=== PATIENT | female | born 1980 | race Caucasian/White ===

== ENCOUNTER → 2017-06-26 09:42 | Outpatient (CLI) | payer MEDICAID, SELFPAY ==
--- NOTE | 2017-06-26 09:47 | HPBI_ITS ---
MAMMOGRAPHY - BILATERAL SCREENING REASON FOR EXAM: Female, 36 years old. Routine annual screening examination. PERTINENT HISTORY: Grandmother with breast cancer. TECHNIQUE: Digital bilateral breast michelle (3D mammographic acquisition) in the CC and MLO projections. 2-D mediolateral oblique (MLO) and craniocaudad (CC) views of both breasts were obtained. CAD: Full Field Digital Mammography with Computer Added Detection was performed. COMPARISON: None. Baseline examination. FINDINGS: Breast Composition: The breasts are heterogeneously dense, which may obscure small masses. There are no dominant masses or suspicious calcifications. No other significant abnormalities are identified. HPBI/SCREENING MAMM (CAD), BILAT IMPRESSION: Negative screening mammogram. Yearly followup mammogram recommended. (A) ASSESSMENT CATEGORY: BIRADS Category 1: Negative. A letter regarding these results will be sent to the patient by the facility within 30 days. Approximately 10% of breast cancers are not detected by mammography. A normal mammogram should not delay biopsy of a clinically suspicious abnormality. [id number] Electronically Signed: Fortino Blood MD at 12:44 EST Tel [phone], Service support ,
== END ==
PROVIDERS: Family Provider Internal Medicine; PCP Internal Medicine; Visit Provider Obstetrics & Gynecology
DX: Z12.31 Encounter for screening mammogram for malignant neoplasm of breast (principal)
CPT/HCPCS: 77063; 77067

== ENCOUNTER → 2018-01-13 10:26 | Outpatient (CLI) | payer MEDICAID, SELFPAY ==
[2018-01-13 10:56] LABS: Absolute Lymphocyte Count 1.45 X10^3/ul (0.83-4.51); Absolute Neutrophil Count 4.3 X10^3/uL (2.0-7.7); Basophil# 0.02 X10^3/uL; Basophil% 0.3 % (0-1); Eosinophils% 1.5 % (0-5); Hematocrit 43.6 % (37-47); Hemoglobin 14.3 g/dl (12.0-15.0); Lymphocyte # 1.45 X10^3/ul (4.0); Lymphocyte % 21.9 % (19-41); Mean Corp Hgb Conc 32.8 g/gl (32-36); Mean Corpuscular Hgb 30.7 pg (27.0-32.0); Mean Corpuscular Volume 93.6 fL (81-99); Mean Platelet Vol. 9.3 fl (6.2-12.0); Monocyte# 0.77 X10^3/uL; Monocyte% 11.6 % (0-10); Neutrophil # 4.28 X10^3/uL (2.7-7.7); Neutrophil % 64.7 % (47-70); Platelet Count 225 K/mm3 (150-450); RBC Distribution Width SD 40.4 fl (35.1-43.9); Red Blood Count 4.66 M/mm3 (4.2-5.4); White Blood Count 6.6 K/mm3 (4.4-11.0)
[2018-01-13 11:03] LABS: POSITIVE COUNT NO; POSITIVE DIFFERENTIAL NO; POSITIVE MORPHOLOGY NO
[2018-01-13 11:42] LABS: AST(SGOT) 13 U/L (15-37); Alanine Aminotransfer ALT/SGPT 17 U/L (13-56); Albumin, Serum 3.8 g/dL (3.2-5.0); Alkaline Phosphatase 88 U/L (45-117); Anion Gap 8 (5-15); BUN 11 mg/dL (7-18); BUN/Creat Ratio 14.6 RATIO (10-20); Chloride 105 mmol/L (98-107); Creatinine, Serum 0.75 mg/dL (0.55-1.02); EST Glomerular Filtration Rate 92 mL/min (>60); Est Glom Filt Rate - Afr Amer 112 mL/min (>60); Globulin 3.8 g/dL (2.2-4.2); Glucose 86 mg/dL (74-106); Potassium 4.4 mmol/L (3.5-5.1); Protein, Total 7.6 g/dL (6.4-8.2); Sodium Level 141 mmol/L (136-145); Thyroid Stim Hormone (TSH) 1.91 uIU/mL (0.358-3.74)
[2018-01-13 11:51] LABS: Pregnancy, Serum, hCG Quali. NEGATIVE Negative (0-9 Nonpreg)
== END ==
PROVIDERS: Family Provider Internal Medicine; PCP Internal Medicine; Visit Provider Internal Medicine
DX: R53.81 Other malaise (principal); R53.83 Other fatigue; N91.2 Amenorrhea, unspecified
CPT/HCPCS: 36415; 80053; 84439; 84443; 84703; 85025

== ENCOUNTER → 2018-02-25 14:36 | Outpatient (CLI) | payer MEDICAID, SELFPAY ==
[2018-02-25 16:15] LABS: Erythrocyte Sedimentation Rate 1 mm/hr (0-20)
[2018-02-28 13:52] LABS: ANTINUCLEAR ANTIBODIES DIRECT Negative (Negative)
== END ==
PROVIDERS: Family Provider Internal Medicine; PCP Internal Medicine; Referring Provider Internal Medicine; Visit Provider Internal Medicine
DX: R50.9 Fever, unspecified (principal); R53.81 Other malaise; R53.83 Other fatigue
CPT/HCPCS: 36415; 85652; 86038; 86225; 86235

== ENCOUNTER → 2018-12-25 15:02 | Outpatient (CLI) | payer MEDICAID, SELFPAY ==
[2018-02-25 13:48] VITALS: BMI 20.7
[2018-12-30 09:47] LABS: HPV Reflexed? NOT INDICATED
== END ==
PROVIDERS: Visit Provider Obstetrics & Gynecology
DX: Z12.4 Encounter for screening for malignant neoplasm of cervix (principal)
CPT/HCPCS: 87624; 88175; G0145

== ENCOUNTER → 2020-01-21 08:58 | Outpatient (CLI) | payer MEDICAID, SELFPAY ==
[2020-01-21 12:20] LABS: Absolute Lymphocyte Count 1.06 X10^3/uL (0.83-4.51); Absolute Neutrophil Count 4.5 X10^3/uL (2.0-7.7); Basophil# 0.03 X10^3/uL; Basophil% 0.5 % (0-1); Eosinophil# 0.06 X10^3/uL; Hematocrit 42.6 % (37-47); Hemoglobin 13.9 g/dL (12.0-15.0); Lymphocyte # 1.06 X10^3/ul (4.0); Lymphocyte % 17.2 % (19-41); Mean Corp Hgb Conc 32.6 g/dL (32-36); Mean Corpuscular Hgb 30.5 pg (27.0-32.0); Mean Corpuscular Volume 93.4 fL (81-99); Mean Platelet Vol. 9.6 fl (6.2-12.0); Monocyte# 0.53 X10^3/uL; Monocyte% 8.6 % (0-10); NRBC Flagged by Analyzer 0 % (0-5); Neutrophil # 4.48 X10^3/uL (2.7-7.7); Neutrophil % 72.4 % (47-70); Platelet Count 314 K/mm3 (150-450); RBC Distribution Width CV 11.5 % (11.6-14.6); RBC Distribution Width SD 39.2 fl (35.1-43.9); Red Blood Count 4.56 M/mm3 (4.2-5.4); White Blood Count 6.2 K/mm3 (4.4-11.0)
[2020-01-21 12:22] LABS: Vitamin D,25 Hydroxy 36.4 ng/mL
[2020-01-21 12:37] LABS: ALB/GLOB Ratio 1.1 RATIO (0.9-2.4); AST(SGOT) 15 U/L (15-37); Alanine Aminotransfer ALT/SGPT 20 U/L (13-56); Alkaline Phosphatase 79 U/L (45-117); Anion Gap 6 (5-15); BUN 13 mg/dL (7-18); BUN/Creat Ratio 11.8 RATIO (10-20); Calcium,Total 8.8 mg/dL (8.5-10.1); Chloride 105 mmol/L (98-107); EST Glomerular Filtration Rate 59 mL/min (>60); Est Glom Filt Rate - Afr Amer 71 mL/min (>60); Globulin 3.6 g/dL (2.2-4.2); Glucose 75 mg/dL (74-106); Potassium 4.1 mmol/L (3.5-5.1); Protein, Total 7.6 g/dL (6.4-8.2); Sodium Level 140 mmol/L (136-145); T4 Free Direct 1.13 ng/dL (0.76-1.46); Thyroid Stim Hormone (TSH) 1.45 uIU/mL (0.358-3.74)
== END ==
PROVIDERS: PCP Internal Medicine; Visit Provider Nurse Practitioner Family
DX: L65.9 Nonscarring hair loss, unspecified (principal); F41.9 Anxiety disorder, unspecified; E56.9 Vitamin deficiency, unspecified
CPT/HCPCS: 36415; 80053; 82306; 84439; 84443; 85025

== ENCOUNTER → 2020-04-03 18:14 | Outpatient (CLI) | payer MEDICAID, SELFPAY | PROVIDERS: PCP Internal Medicine; Referring Provider Dermatology; Visit Provider Dermatology | DX: U07.1 COVID-19 (principal) | CPT/HCPCS: 87635; C9803; U0003 ==

== ENCOUNTER → 2021-01-24 | Outpatient (CLI) | payer MEDICAID, SELFPAY ==
[2021-01-26 22:05] LABS: HPV Reflexed? NOT INDICATED
== END | disposition home or self-care (01) ==
LOC: LABSPEC 11:10
PROVIDERS: PCP Internal Medicine; Visit Provider Obstetrics & Gynecology
DX: Z12.4 Encounter for screening for malignant neoplasm of cervix (principal)
CPT/HCPCS: 88175; G0145

== ENCOUNTER 2021-05-08 11:52 | Outpatient (CLI) | payer MEDICAID, SELFPAY | END 2021-05-08 23:59 | disposition short-term general hospital (02) | LOC: LABSPEC 11:53 | PROVIDERS: PCP Internal Medicine; Referring Provider Nurse Practitioner Family; Visit Provider Nurse Practitioner Family | DX: U07.1 COVID-19 (principal); J06.9 Acute upper respiratory infection, unspecified | CPT/HCPCS: 87635; 87804; U0003; U0005 ==

== ENCOUNTER 2021-08-22 15:30 | Outpatient (CLI) | payer MEDICAID, SELFPAY ==
[2021-08-22 16:41] LABS: Absolute Lymphocyte Count 2.06 X10^3/uL (0.83-4.51); Basophil# 0.04 X10^3/uL; Basophil% 0.5 % (0-1); Eosinophil# 0.12 X10^3/uL; Eosinophils% 1.5 % (0-5); Hematocrit 40.3 % (37-47); Hemoglobin 13.2 g/dL (12.0-15.0); Lymphocyte # 2.06 X10^3/ul (0.83-4.51); Lymphocyte % 26.5 % (19-41); Mean Corp Hgb Conc 32.8 g/dL (32-36); Mean Corpuscular Hgb 30.8 pg (27.0-32.0); Mean Corpuscular Volume 93.9 fL (81-99); Mean Platelet Vol. 9.1 fl (6.2-12.0); Monocyte# 0.52 X10^3/uL; Monocyte% 6.7 % (0-10); NRBC Flagged by Analyzer 0 % (0-5); Neutrophil # 5.01 X10^3/uL (2.7-7.7); Neutrophil % 64.7 % (47-70); Platelet Count 324 K/mm3 (150-450); RBC Distribution Width CV 11.7 % (11.6-14.6); RBC Distribution Width SD 40.2 fl (35.1-43.9); Red Blood Count 4.29 M/mm3 (4.2-5.4); White Blood Count 7.8 K/mm3 (4.4-11.0)
[2021-08-22 17:18] LABS: ALB/GLOB Ratio 1.1 RATIO (0.9-2.4); AST(SGOT) 15 U/L (15-37); Alanine Aminotransfer ALT/SGPT 19 U/L (13-56); Albumin, Serum 3.7 g/dL (3.2-5.0); Alkaline Phosphatase 71 U/L (45-117); Anion Gap 5 (5-15); BUN 19 mg/dL (7-18); BUN/Creat Ratio 23.7 RATIO (10-20); Calcium,Total 8.7 mg/dL (8.5-10.1); Chloride 105 mmol/L (98-107); Cholesterol 138 mg/dL (200); EST Glomerular Filtration Rate 84 mL/min (>60); Est Glom Filt Rate - Afr Amer 102 mL/min (>60); Globulin 3.4 g/dL (2.2-4.2); Glucose 96 mg/dL (74-106); High Density Lipoprotein 55 mg/dL; Potassium 3.6 mmol/L (3.5-5.1); Protein, Total 7.1 g/dL (6.4-8.2); Sodium Level 137 mmol/L (136-145); Triglycerides 137 mg/dL; Very Low Density Lipoprotein 27 mg/dL (5-40)
== END 2021-08-22 23:59 | disposition home or self-care (01) ==
LOC: BIMLAB 15:30
PROVIDERS: PCP Internal Medicine; Visit Provider Nurse Practitioner Family
DX: Z00.00 Encounter for general adult medical examination without abnormal findings (principal)
CPT/HCPCS: 36415; 80053; 80061; 84443; 85025

== ENCOUNTER → 2022-10-02 | Outpatient (CLI) | payer MEDICAID, SELFPAY ==
[2022-10-02 12:52] LABS: Absolute Lymphocyte Count 1.73 X10^3/uL (0.83-4.51); Absolute Neutrophil Count 3.9 X10^3/uL (2.0-7.7); Basophil# 0.04 X10^3/uL; Basophil% 0.6 % (0-1); Eosinophil# 0.07 X10^3/uL; Eosinophils% 1.1 % (0-5); Hematocrit 42.8 % (37-47); Hemoglobin 13.8 g/dL (12.0-15.0); Lymphocyte # 1.73 X10^3/ul (0.83-4.51); Lymphocyte % 27.4 % (19-41); Mean Corp Hgb Conc 32.2 g/dL (32-36); Mean Corpuscular Hgb 30.4 pg (27.0-32.0); Mean Corpuscular Volume 94.3 fL (81-99); Mean Platelet Vol. 9.2 fl (6.2-12.0); Monocyte# 0.58 X10^3/uL; Monocyte% 9.2 % (0-10); NRBC Flagged by Analyzer 0 % (0-5); Neutrophil # 3.87 X10^3/uL (2.7-7.7); Neutrophil % 61.4 % (47-70); Platelet Count 358 K/mm3 (150-450); RBC Distribution Width CV 11.9 % (11.6-14.6); RBC Distribution Width SD 41.6 fl (35.1-43.9); Red Blood Count 4.54 M/mm3 (4.2-5.4); White Blood Count 6.3 K/mm3 (4.4-11.0)
[2022-10-02 13:27] LABS: Vitamin B12 350 pg/mL (211-911); Vitamin D,25 Hydroxy 46.8 ng/mL
[2022-10-02 13:57] LABS: ALB/GLOB Ratio 1.2 RATIO (0.9-2.4); AST(SGOT) 22 U/L (15-37); Alanine Aminotransfer ALT/SGPT 23 U/L (13-56); Albumin, Serum 3.8 g/dL (3.2-5.0); Alkaline Phosphatase 63 U/L (45-117); Anion Gap 6 (5-15); BUN 13 mg/dL (7-18); BUN/Creat Ratio 14.7 RATIO (10-20); Calcium,Total 8.9 mg/dL (8.5-10.1); Chloride 106 mmol/L (98-107); Cholesterol 144 mg/dL (200); Creatinine, Serum 0.88 mg/dL (0.55-1.02); EST Glomerular Filtration Rate 75 mL/min (>60); Est Glom Filt Rate - Afr Amer 91 mL/min (>60); Globulin 3.3 g/dL (2.2-4.2); Glucose 93 mg/dL (74-106); High Density Lipoprotein 56 mg/dL; Potassium 4.3 mmol/L (3.5-5.1); Protein, Total 7.1 g/dL (6.4-8.2); Sodium Level 138 mmol/L (136-145); Thyroid Stim Hormone (TSH) 1.53 uIU/mL (0.358-3.74); Triglycerides 79 mg/dL; Very Low Density Lipoprotein 16 mg/dL (5-40)
== END | disposition home or self-care (01) ==
LOC: BIMLAB 09:42
PROVIDERS: Nurse Practitioner Family; PCP Internal Medicine; Visit Provider Internal Medicine
DX: Z00.00 Encounter for general adult medical examination without abnormal findings (principal); E56.9 Vitamin deficiency, unspecified
CPT/HCPCS: 36415; 80053; 80061; 82306; 82607; 84443; 85025

== ENCOUNTER → 2022-10-11 | Outpatient (CLI) | payer MEDICAID, SELFPAY ==
--- NOTE | 2022-10-11 10:02 | BI_ITS ---
MAMMOGRAPHY - BILATERAL SCREENING REASON FOR EXAM: Female, 41 years old. Routine annual screening examination. PERTINENT HISTORY: Grandmother with breast cancer. TECHNIQUE: Digital bilateral breast aaliyah (3D mammographic acquisition) in the CC and MLO projections. 2-D mediolateral oblique (MLO) and craniocaudad (CC) views of both breasts were obtained. CAD: Full Field Digital Mammography with Computer Added Detection was performed. COMPARISON: Comparison is made with prior study June 26, 2017. FINDINGS: Breast Composition: The breasts are heterogeneously dense, which may obscure small masses. There are no dominant masses or suspicious calcifications. No other significant abnormalities are identified. There has been no significant change since the prior study. BI/SCRN MAMM (CAD)W/AALIYAH BILAT IMPRESSION: Stable bilateral screening mammogram. Yearly follow-up mammogram recommended. (A) ASSESSMENT CATEGORY: BIRADS Category 1: Negative. A letter regarding these results will be sent to the patient by the facility within 30 days. Approximately 10% of breast cancers are not detected by mammography. A normal mammogram should not delay biopsy of a clinically suspicious abnormality. [id number] Electronically Signed: Fortino Blood MD at 11:16 EDT ,
== END | disposition home or self-care (01) ==
LOC: OPBI 10:01
PROVIDERS: PCP Nurse Practitioner Family; Referring Provider Nurse Practitioner Family; Visit Provider Nurse Practitioner Family
DX: Z12.31 Encounter for screening mammogram for malignant neoplasm of breast (principal)
CPT/HCPCS: 77063; 77067

== ENCOUNTER → 2023-09-04 | Outpatient (CLI) | payer OTHER, SELFPAY ==
--- NOTE | 2023-09-04 09:45 | RAD_ITS ---
STUDY: X-RAY - THORACIC SPINE REASON FOR EXAM: Female, 42 years old. Back pain. TECHNIQUE: 3 view(s) of the thoracic spine were obtained. COMPARISON: None. FINDINGS: Normal kyphosis of the thoracic spine. No scoliosis. Mild diffuse intervertebral disc space narrowing. Osteophytes most marked at T8-9, T9-T10, T10-11 and T11-12. Normal soft tissues. RAD/Thoracic Spine 3 Views IMPRESSION: Mild lower thoracic spondylosis. Electronically Signed: Lester Thurman MD at 14:20 EDT ,
--- NOTE | 2023-09-04 09:45 | RAD_ITS ---
STUDY: X-RAY - LUMBAR SPINE REASON FOR EXAM: Female, 42 years old. Back pain. TECHNIQUE: 2 view(s) of the lumbar spine were obtained. COMPARISON: None FINDINGS: Normal lumbar lordosis. No scoliosis. Normal alignment of the vertebral bodies. Normal vertebral bodies and endplates. Normal disc space heights. Postsurgical changes with wires projected beside both lower lumbosacral and upper pelvic regions. RAD/Lumbar Spine 2 or 3 Views IMPRESSION: No abnormality of the lumbar spine. Electronically Signed: Lester Thurman MD at 11:46 EDT ,
== END | disposition home or self-care (01) ==
LOC: MTRAD 09:42
PROVIDERS: PCP Nurse Practitioner Family; Referring Provider Nurse Practitioner Family; Visit Provider Nurse Practitioner Family
DX: M54.50 Low back pain, unspecified (principal)
CPT/HCPCS: 72072; 72100

== ENCOUNTER → 2024-10-08 | Outpatient (CLI) | payer OTHER, SELFPAY ==
--- OUTSIDE RECORDS SUMMARY | 2024-10-08 09:40 | XMS RPT_ITS | CCD ---
Author Organization [facility] Care Team Providers Care Chief Of Surgery Name Role Phone JOLYNN BARNETT Attending Unavailable JOLYNN BARNETT Primary Care Unavailable JOLYNN BARNETT Admitting Unavailable Dr. Nba Campos Primary Care Provider [phone] Dr. Nba Campos Referring Provider [phone] Rohini [employer]ER, WO[employer]ING [employer] LABORER-C Miguel Attending Provider Dr. Nba Campos Primary Care Provider [phone] Dr. Nba Campos Referring Provider [phone] Rohini [employer]ER, WO[employer]ING [employer]ORER-C Miguel Attending Provider Nba Campos Attending Unavailable Nba Campos Primary Care Unavailable Rohini [employer]ING [employer]ORER, Miguel Attending Unavailable Nova [employer]ING [employer] LABORER, Miguel Referring Unavailable Nova WO[employer]ING [employer]ANT LABORER, Miguel Primary Care Unavailable Nova VSC, Miguel Attending Unavailable Nova VSC, Miguel Referring Unavailable Nova VSC, Miguel Primary Care Unavailable Rohini [employer]ORER, Miguel Attending Unavailable Nba Campos Referring Unavailable Nba Campos Primary Care Unavailable Unavailable Primary Care Provider Unavailosmel Nova NEWS TECHNICAL DIRECTORMiguel Primary Care Provider [phone] ADE GOOD Attending Unavailable GUILLERMINA HEARN Referring Unavailable GUILLERMINA HEARN Attending Unavailable ELIZABETH BIRD Referring Unavailable ADE GOOD Referring Unavailable MIGUEL NOVA Primary Care Unavailable Medications Current Medications Medication Drug Class(es) Dates Sig (Normalized) Sig (Original) escitalopram 20 mg oral tablet (20 sources) Serotonin Reuptake Inhibitor Start: 09-16-2023 take 1 tablet by mouth once escitalopram oxalate (LEXAPRO) 20 mg tablet Take 1 tablet by mouth every afternoon. 09/16/2023 Active Start: 03-03-2020 End: 09-17-2022 take 1 tablet by mouth once daily Escitalopram Oxalate (Lexapro) 20 mg tablet Discontinued 20 MG PO DAILY March 12, 2021 9:50am August 22, 2021 3:21pm Start: 01-24-2020 End: 03-03-2020 take 1 tablet by mouth once daily Escitalopram Oxalate (Lexapro) 5 mg tablet Discontinued 5 MG PO DAILY January 24, 2020 12:00am March 03, 2020 8:51am levonorgestrel 0.377557 mg/hr intrauterine system (5 sources) Progestin, Progestin-containing Intrauterine Device Start: 01-13-2018 Levonorgestrel (Mirena) 20 mcg/24 hr (5 years) intrauterine device Active 1 INSERT INTRA-UTER ONCE January 13, 2018 12:00am spironolactone 100 mg oral tablet (3 sources) Aldosterone Antagonist Start: 09-07-2023 take 1 tablet by mouth once spironolactone (ALDACTONE) 100 mg tablet Take 1 tablet by mouth every afternoon. 09/07/2023 Active vitamin b12 1 mg/ml injectable solution (5 sources) Vitamin B12 Start: 10-02-2022 End: 03-07-2023 inject 1000 ug by intramuscular injection every month Cyanocobalamin (Vitamin B-12) Active 1000 MCG IM EVERY MONTH March 07, 2023 9:18am Completed/Discontinued Medications Medication Drug Class(es) Dates Sig (Normalized) Sig (Original) azithromycin 250 mg oral tablet (5 sources) Macrolide Antimicrobial Start: 02-11-2019 End: 01-21-2020 Azithromycin Discontinued 0 PO .COMPLEX February 11, 2019 12:00am January 21, 2020 8:28am Take two tablets by mouth on day one then one tablet by mouth on days 2-5 cholecalciferol 0.025 mg oral capsule (5 sources) Vitamin D Start: 08-16-2020 End: 08-22-2021 take 25 ug by mouth once daily Cholecalciferol (Vitamin D3) Discontinued 25 MCG PO DAILY August 16, 2020 12:00am August 22, 2021 2:51pm dextromethorphan hydrobromide 3 mg/ml / promethazine hydrochloride 1.25 mg/ml oral solution (3 sources) Phenothiazine, Uncompetitive A-aaaevd-A-asparta te Receptor Antagonist, Sigma-1 Agonist Start: 07-07-2015 End: 12-10-2023 take 5 mL by mouth every six hours as needed Promethazine-DM (PHENERGAN-DM) 6.25-15 mg/5 mL syrup Take 5 mL by mouth four times daily as needed. 120 mL 0 07/07/2015 12/10/2023 Discontinued (Course of therapy completed) ferrous gluconate 324 mg oral tablet (5 sources) Start: 09-29-2014 End: 01-13-2018 take 325 mg by mouth once daily Ferrous Gluconate Discontinued 325 MG PO DAILY@0800 September 29, 2014 12:00am January 13, 2018 9:39am Flucelvax Quad (PF) (flu vac qs 2017(4 yr up)CD(PF)) 60 mcg (15 mcg x (1 source) Start: 02-25-2018 End: 02-25-2018 inject 15 ug by intramuscular injection once Flucelvax Quad (PF) (flu vac qs 2017(4 yr up)CD(PF)) 60 mcg (15 mcg x Discontinued 60 MCG IM ONCE 1 February 25, 2018 1:35pm February 25, 2018 3:06pm lidocaine hydrochloride 20 mg/ml mucous membrane topical solution (5 sources) Antiarrhythmic, Amide Local Anesthetic Start: 02-11-2019 End: 01-21-2020 Lidocaine Hcl (Lidocaine Viscous) 2 % solution Discontinued 5 ML MUCOUS MEM THREE TIMES A DAY February 11, 2019 12:00am January 21, 2020 8:28am Multivitamin preparation (5 sources) Start: 08-16-2020 End: 08-22-2021 take 1 tablet by mouth once daily Multivitamin Discontinued 1 TABLET PO DAILY August 16, 2020 2:32pm August 22, 2021 2:51pm Start: 08-16-2020 End: 08-22-2021 take 1 tablet by mouth once daily Multivitamin Discontinued 1 TABLET PO DAILY August 16, 2020 12:00am August 22, 2021 2:51pm Start: 08-16-2020 End: 08-22-2021 take 1 tablet by mouth once daily Multivitamin Discontinued 1 TABLET PO DAILY August 15, 2020 11:00pm August 22, 2021 1:51pm NORGESTIMATE-ETHINYL ESTRADI OL (TRI-SPRINTEC, 28, ORAL) (3 sources) End: 12-10-2023 NORGESTIMATE-ETHINYL ESTRADI OL (TRI-SPRINTEC, 28, ORAL) Take by mouth once daily. 12/10/2023 Discontinued (Course of therapy completed) End: 12-10-2023 NORGESTIMATE-ETHINYL ESTRADI OL (TRI-SPRINTEC, 28, ORAL) Take by mouth once daily. 0 12/10/2023 Discontinued (Course of therapy completed) NORGESTIMATE-ETH INYL ESTRADIOL (TRI-SPRINTEC, 28, ORAL) Take by mouth once daily. 0 Active Vit,Vihp57-Tlkk-Kpubc (5 sources) Start: 07-30-2014 End: 01-13-2018 take 1 tablet by mouth once daily Vit,Iunx25-Qhwd-Egssa Discontinued 1 TABLET PO DAILY July 30, 2014 10:24pm January 13, 2018 9:39am Start: 07-30-2014 End: 01-13-2018 take 1 tablet by mouth once daily Vit,Yxez01-Qhsc-Yahop Discontinued 1 TABLET PO DAILY July 30, 2014 12:00am January 13, 2018 9:39am Start: 07-30-2014 End: 01-13-2018 take 1 tablet by mouth once daily Vit,Tnur12-Hkoe-Cktna Discontinued 1 TABLET PO DAILY July 29, 2014 11:00pm January 13, 2018 8:39am QUEtiapine 25 mg oral tablet (5 sources) Atypical Antipsychotic Start: 01-21-2020 End: 01-24-2020 take 1 tablet by mouth at bedtime Quetiapine (Seroquel) 25 mg tablet Discontinued 25 MG PO AT BEDTIME January 21, 2020 12:00am January 24, 2020 9:42pm rizatriptan 10 mg oral tablet (3 sources) Serotonin-1b and Serotonin-1d Receptor Agonist Start: 03-28-2015 End: 12-10-2023 rizatriptan (MAXALT) 10 mg tablet Take one at onset of headache. May repeat in 2 hours as needed. Max 30 mg/24 hours. 12 tablet 1 03/28/2015 12/10/2023 Discontinued (Course of therapy completed) Zinc (5 sources) Start: 08-16-2020 End: 08-22-2021 take 50 mg by mouth once daily Zinc Discontinued 50 MG PO DAILY August 16, 2020 2:33pm August 22, 2021 2:51pm Start: 08-16-2020 End: 08-22-2021 take 50 mg by mouth once daily Zinc Discontinued 50 MG PO DAILY August 16, 2020 12:00am August 22, 2021 2:51pm Start: 08-16-2020 End: 08-22-2021 take 50 mg by mouth once daily Zinc Discontinued 50 MG PO DAILY August 15, 2020 11:00pm August 22, 2021 1:51pm Problems Active Problems Problem Classification Problem Date Documented Da te Episodic/Chronic Anxiety disorders (10 sources) Anxiety; Translations: [Anxiety disorder, unspecified] 03-03-2020 Chronic Headache; including migraine (5 sources) Migraine; Translations: [Migraine, unspecified, not intractable, without status migrainosus] 01-13-2018 Chronic Malaise and fatigue (5 sources) Malaise and fatigue; Translations: [Other malaise] 01-13-2018 Episodic Other nervous system disorders (1 source) Other chronic pain; Translations: [Chronic right-sided low back pain without sciatica] Onset: 12-29-2023 Chronic Other non-traumatic joint disorders (1 source) Pain in right hip joint; Translations: [Pain in right hip] 10-14-2023 Episodic Residual codes; unclassified (5 sources) Insomnia; Translations: [Insomnia, unspecified] 03-03-2020 Episodic Spondylosis; intervertebral disc disorders; other back problems (3 sources) Arthropathy of lumbar facet joint; Translations: [Spondylosis without myelopathy or radiculopathy, lumbar region] Onset: 12-29-2023 12-10-2023 Chronic Spondylosis; intervertebral disc disorders; other back problems (5 sources) Low back pain; Translations: [Lumbar back pain] 10-14-2023 Episodic Unclassified (3 sources) Invalid ICD10 Description; Translations: [Invalid ICD10 Description] Onset: 05-25-2020 Unclassified (1 source) Low back pain, unspecified; Translations: [Low back pain, unspecified] Onset: 09-13-2023 Unclassified (2 sources) Lumbar back pain; Translations: [Lumbar back pain] Onset: 12-10-2023 Unclassified (1 source) Chronic right-sided low back pain without sciatica; Translations: [Chronic right-sided low back pain without sciatica] Onset: 12-29-2023 Past or Other Problems Problem Classification Problem Date Documented Da te Episodic/Chronic Nutritional deficiencies (6 sources) Vitamin deficiency; Translations: [Vitamin deficiency, unspecified] Onset: 10-02-2022 10-02-2022 Episodic Other screening for suspected conditions (not mental disorders or infectious disease) (1 source) Encounter for screening mammogram for malignant neoplasm of breast; Translations: [Encounter for screening mammogram for malignant neoplasm of breast] Onset: 10-17-2022 Episodic Unclassified (4 sources) history vein embolization 11-28-2021 Results Test Name Value Interpretation Reference Range Facility CNOV 12-10-2023 CNOV Office Visit (SPNMSO) KELECHI SMITH ([id number]) 1980 F Date Time Provider Department 12/10/23 8:40 AM ADE [facility] During your visit today, we recorded the following information about you: Temperature Pulse Blood pressure Weight 97.1 degrees 67/minute 112/68 67.1 kg Ade Good MD 12/10/2023 2:21 PM Signed Spine Care Path Low Back Pain - Chronic (> 12 weeks) Initial Exam SUBJECTIVE HISTORY OF PRESENT ILLNESS: Kelechi Smith is a 43 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 Guillermina Hearn for an opinion regarding right lumbar pain, not hip issue. My final recommendations will be communicated back to the requesting physician by way of shared medical record or letter via US mail. Her PT thought she may have a torn labrum, thus she saw Dr Hearn--clinically not hip issue, referred to spine Other Issues Addressed at the Visit Today: right back/hip pain is limiting her weight training Precipitating Event: none--started in Jan, started after trip to [place] PAIN EVALUATION 12/09/2023 1944 12/10/2023 0840 Pain Level: 4 -- 3-08/12 Pain Location: Back-Lower -- low back to R hip Description: Sore;Stiffness;Tight ness Tightness;Stiffness Duration Amount of Time: 11 11 Duration Units: Months Months Frequency: Continuous Continuous Intervention/Comfort measure: Medication;Repositio n;Heat;Massage;Laureano w support;Positioning Medication;Exercise Comments: -- dry needling, cupping Pain Radiation: Pain does not radiate, tight ball Aggravating Factors: sit/stand transfers, dry needling, in/out of bed Alleviating Factors: None Pain Ratio: N/A Prior Therapy: [facility] in [place] Dry needling and cupping Medications including prednisone (no change) Heat and ice OTC medications lidocaine Litigation: No Workers' Compensation: No YELLOW AND BLUE FLAGS No-Neg Attitude; Back Pain is Disabling YES-Avoiding Activity (for Fear of Pain) No-Depression or Anxiety Disorders No-Social Problems No-Substance Use Disorder No-Job Dissatisfaction No-Financial Disincentives Not working out Patient Entered Questionnaires 12/09/2023 Spine Questions Pain Location: Lower back Pain Duration: 6 months - 1 year Pain over last 6 months: Every day or nearly every day in the past 6 months Symptoms from neck/cervical spine: Yes Employment Status: Working now Involved in law suit/legal claim: No 12/09/2023 Spine Red Flags Any type of cancer: No Unexplained fever: No Bowel or bladder dysfunction: No Unintentional weight loss: No Osteoporosis: No 12/09/2023 Neck Questionnaires Benzel Modified CLAUDE Score 18 (No Myelopathy Symptoms) PROMIS Score Percentiles 10/13/2023 12/09/2023 Physical Health Physical Function Percentile 34 21* Sleep Percentile 38 Fatigue Percentile 46 Pain Interference Percentile 42 12/09/2023 PROMIS SOCIAL ROLE SCORE Social Role Satisfaction Percentile 58 10/13/2023 PROMIS Global Health Scale Physical Health Percentile 31 Mental Health Percentile 53 Percentiles provide an indication of how the patient's score ranks in relation to the general population. Higher percentile rankings indicate better function/quality of life. 50th percentile is the average of the general population and indicates half of respondents had a worse score. Depression Screenin12/09/2023 PHQ-9 Score 3 12/09/2023 PHQ-9 Self-harm Question Question 9 Not at all PHQ-9 Self-Harm (Item 9) response options: 0 Not at all 1 Several days 2 More than half the days 3 Nearly every day PHQ-9 Levels: 0-4 No - mild depression 5-9 Mild depression 10-14 Moderate depression 15-19 Moderately severe depression 20-27 Severe depression There is no problem list on file for this patient. PAST MEDICAL HISTORY No date: Anxiety state PAST SURGICAL HISTORY 04/2007: EMBOLIZATION COILS Social History Tobacco Use Smoking status: Never Smokeless tobacco: Never FAMILY HISTORY Problem Relation Age of Onset Hypothyroidism Mother Back Pain Father Back Pain Sister Back Pain Brother ALLERGIES No Known Allergies CURRENT MEDICATIONS: escitalopram oxalate (LEXAPRO) 20 mg tablet Take 1 tablet by mouth every afternoon. spironolactone (ALDACTONE) 100 mg tablet Take 1 tablet by mouth every afternoon. REVIEW OF SYSTEMS: Other than listed in HPI or PMHX below the patient denies any complaint of the following: myalgias, diagnosis of cancer, significant spinal trauma, cough, fever, weight loss, dizziness, fainting, orthostasis, vision or language changes. No shortness of breath, chest pain, nausea, vomiting or diarrhea. Reviewed and verified medical referral coordinator/nurse's progress notes. No revisions. OBJECTIVE: PHYSICAL EXAM BP 112/68 (BP Site: Right Arm, BP Position: S (more content not included)... Normal [facility] CNOVon 10-14-2023 CNOV Office Visit (SPHTB) KELECHI SMITH ([id number]) 1980 F Date Time Provider Department 10/14/23 9:45 AM GUILLERMINA HEARN SPHTB During your visit today, we recorded the following information about you: Guillermina Hearn MD 10/14/2023 10:13 AM Signed DEPARTMENT OF ORTHOPAEDICS Consultation as a request of self. Chief Complaint: Right hip pain HISTORY OF PRESENT ILLNESS: This is a pleasant 42 year old female, who presents today with a chief complaint of right hip pain/low back pain Injury/ Trauma: Denies PAIN EVALUATION 10/13/20232112 Pain Level: 3 Pain Location: Back Description: Aching;Burning;Radia ting;Sharp;Sore;Spas m;Stiffness;Tightnes s Duration Units: Months Frequency: Continuous Intervention/Comfort measure: Medication;Repositio n;Relaxation;Heat;Ma ssage Pain location: posterior Duration of pain/ symptoms: 9 months Frequency: intermittent Intensity: moderate Quality: dull and burning She Reports nocturnal pain. She denies numbness, tingling, or electric shocks. She denies popping, clicking, catching, locking, grinding, instability, buckling, or giving way. Aggravating factors: ADL's, pivoting, prolonged sitting, and prolonged standing Alleviating factors: Unknown Prior Treatments: massage/PT Work Related: No Occupation: Activity level: recreational, sport/activity: No past medical history on file. No past surgical history on file. Current Outpatient Medications Medication Sig Dispense Refill escitalopram oxalate (LEXAPRO) 20 mg tablet Take 1 tablet by mouth every afternoon. spironolactone (ALDACTONE) 100 mg tablet Take 1 tablet by mouth every afternoon. Promethazine-DM (PHENERGAN-DM) 6.25-15 mg/5 mL syrup Take 5 mL by mouth four times daily as needed. 120 mL 0 rizatriptan (MAXALT) 10 mg tablet Take one at onset of headache. May repeat in 2 hours as needed. Max 30 mg/24 hours. 12 tablet 1 NORGESTIMATE-ETHINYL ESTRADIOL (TRI-SPRINTEC, 28, ORAL) Take by mouth once daily. No current facility-administere d medications for this visit. ALLERGIES No Known Allergies No family history on file. Social History Tobacco Use Smoking status: Never Smokeless tobacco: Never REVIEW OF SYSTEMS: GENERAL: No weight loss, malaise or fevers HEENT: Negative for frequent or significant headaches, No changes in hearing or vision, no nose bleeds or other nasal problems NECK: Negative for lumps, goiter, pain and significant neck swelling RESPIRATORY: Negative for cough, hemoptysis, wheezing, COPD, dyspnea or shortness of breath CARDIOVASCULAR: Negative for chest pain, leg swelling, hypertension, CHF or palpitations GI: No nausea, vomiting, or diarrhea : No history of dysuria, frequency or incontinence MUSCULOSKELETAL: Negative for joint pain or swelling, back pain or muscle pain SKIN: Negative for lesions, rash, and itching HEMATOLOGY/LYMPHOLOG Y: Negative for prolonged bleeding, bruising easily or swollen nodes ENDOCRINE: Negative for cold or heat intolerance, polyuria, polydipsia and goiter RADIOGRAPHS: right AP pelvis, Nina lateral and false view dated today revealed no acute processes, fractures, or dislocations. Osseous and soft tissue structures within normal limits. Tonnis grade 0. X-Rays Reviewed and discussed. OTHER STUDIES: Not applicable PHYSICAL EXAM: There were no vitals taken for this visit. General: Appears stated age, well built, in no apparent distress. Psychiatric: Mood and affect appropriate. Alert and oriented x 3 without evidence of abnormal respiratory effort. Musculoskeletal Exam: Gait normal, Posture: erect and normal. Exam: Right Left Single Leg Trendelenburg Negative Negative Hip flexion 110 110 IR 10 20 ER 60 60 Anterior impingement negative negative Dynamic labral stress negative negative BAY negative negative Posterior Impingement negative negative EDWARDO negative negative Strength Right Left Supine HF 5/5 5/5 Upright HF 5/5 5/5 Adduction 5/5 5/5 Abduction 5/5 5/5 Tenderness with Palpation: Right Left Greater Troch Positive Positive Gluteus Medius Negative Negative Piriformis Negative Negative She has pain with side bending to the left, full extension/flexion PROCEDURE: IMPRESSION: 1. right lumbar back pain, no pain on hip exam. PLAN: 1. Medication: Continue current medications. 2. Test(s)/Imaging/Refe rral(s): spine referral. 3. Intervention: Continue conservative treatment. 4. Follow-up: Two months . Guillermina Hearn MD Sports Medicine/Orthopaedic Surgery Allergies As of Date: 10/14/2023 (No Known Allergies) Date Reviewed: 10/14/2023 Reviewed by: Kanu Valenzuela MA - Fully Assessed Reason for Visit: Pain [78] Primary Visit Diagnosis:Lumbar back pain [M54.50] Order(s):CONSULT TO [facility] [[id number]] Order #: [id number]: 1 FUTURE Prescriptions as of 10/14/2023 (more content not included)... Normal [facility] XR HIP 3V PELV+ AP/LAT RTon 10-14-2023 XR HIP 3V PELV+ AP/LAT RT * * *Final Report* * * DATE OF EXAM: Oct 14 2023 9:46AM SHX [id number] - XR HIP 3V PELV+ AP/LAT RT / PROCEDURE REASON: Pain in right hip * * * * Physician Interpretation * * * * EXAMINATION: XR HIP 3V PELV+ AP/LAT RT HISTORY: Pt sts pain in her Right hip No specific injury. Pt sts coils put in years ago. Pain in right hip . TECHNIQUE: XR HIP 3V PELV+ AP/LAT RT Laterality: RIGHT Number of different views (projections): 3 M: XB_1 COMPARISON: Outside hospital lumbar spine radiograph 09/04/2023. RESULT: No acute fracture or dislocation. Right hip joint space is maintained. Small calcification adjacent to the right greater trochanter may represent calcific gluteal tendinosis. Bilateral sacroiliac, pubic symphysis and imaged left hip joints are maintained. Bilateral ovarian vein embolization coils. IUD in place. IMPRESSION: No acute radiographic abnormality or significant degenerative change of the right hip. Small calcification adjacent to the right greater trochanter may represent calcific gluteal tendinosis. Assembler Production Line: KAYLEY Transcribe Date/Time: Oct 14 2023 9:47A Dictated by : DAVID CONTE MD This examination was interpreted and the report reviewed and electronically signed by: CHRIS WOLFE MD on Oct 14 2023 1:06PM EST [id number] Normal [facility] XR Pelvis and Hip - right AP and Lateral frogon 10-14-2023 IMPRESSION: No acute radiographic abnormality or significant degenerative change of the right hip. Small calcification adjacent to the right greater trochanter may represent calcific gluteal tendinosis. Assembler Production Line: PSCB Transcribe Date/Time: Oct 14 2023 9:47A Dictated by : DAVID CONTE MD This examination was interpreted and the report reviewed and electronically signed by: CHRIS WOLFE MD on Oct 14 2023 1:06PM EST DIVISION OF RADIOLOGY * * *Final Report* * * DATE OF EXAM: Oct 14 2023 9:46AM SHX [id number] - XR HIP 3V PELV+ AP/LAT RT / PROCEDURE REASON: Pain in right hip * * * * Physician Interpretation * * * * EXAMINATION: XR HIP 3V PELV+ AP/LAT RT HISTORY: Pt sts pain in her Right hip No specific injury. Pt sts coils put in years ago. Pain in right hip . TECHNIQUE: XR HIP 3V PELV+ AP/LAT RT Laterality: RIGHT Number of different views (projections): 3 M: XB_1 COMPARISON: Outside hospital lumbar spine radiograph 09/04/2023. RESULT: No acute fracture or dislocation. Right hip joint space is maintained. Small calcification adjacent to the right greater trochanter may represent calcific gluteal tendinosis. Bilateral sacroiliac, pubic symphysis and imaged left hip joints are maintained. Bilateral ovarian vein embolization coils. IUD in place. DIVISION OF RADIOLOGY Provider, [facility] [place] - 10/14/2023 * * *Final Report* * * DATE OF EXAM: Oct 14 2023 9:46AM SHX [id number] - XR HIP 3V PELV+ AP/LAT RT / PROCEDURE REASON: Pain in right hip * * * * Physician Interpretation * * * * EXAMINATION: XR HIP 3V PELV+ AP/LAT RT HISTORY: Pt sts pain in her Right hip No specific injury. Pt sts coils put in years ago. Pain in right hip . TECHNIQUE: XR HIP 3V PELV+ AP/LAT RT Laterality: RIGHT Number of different views (projections): 3 M: XB_1 COMPARISON: Outside hospital lumbar spine radiograph 09/04/2023. RESULT: No acute fracture or dislocation. Right hip joint space is maintained. Small calcification adjacent to the right greater trochanter may represent calcific gluteal tendinosis. Bilateral sacroiliac, pubic symphysis and imaged left hip joints are maintained. Bilateral ovarian vein embolization coils. IUD in place. IMPRESSION IMPRESSION: No acute radiographic abnormality or significant degenerative change of the right hip. Small calcification adjacent to the right greater trochanter may represent calcific gluteal tendinosis. Assembler Production Line: KAYLEY Transcribe Date/Time: Oct 14 2023 9:47A Dictated by : DAVID CONTE MD This examination was interpreted and the report reviewed and electronically signed by: CHRIS WOLFE MD on Oct 14 2023 1:06PM [facility] Radiology Study observation (narrative) [facility] XR Pelvis and Hip - right AP and Lateral frogOrdered By: [facility] Provider on 10-14-2023 [facility] Lumbar Spine 2 or 3 Viewson 09-04-2023 Lumbar Spine 2 or 3 Views [facility] [address] [place] [address] Lumbar Spine 2 or 3 Views MR#: [id number] Acct: [id number] Name: KELECHI SMITH Rep #: [id number] : 1980 F 42 From: Charity Thurman MD PCP: JASMINE Suarez Status: REG CLI Study: Lumbar Spine 2 or 3 Views Date of Exam: Exam# [id number] Ordering Dr: Miguel Nova [facility] WO[employer] PRESERVING [employer]ANT LABORER-C [id number] STUDY: X-RAY - LUMBAR SPINE REASON FOR EXAM: Female, 42 years old. Back pain. TECHNIQUE: 2 view(s) of the lumbar spine were obtained. COMPARISON: None FINDINGS: Normal lumbar lordosis. No scoliosis. Normal alignment of the vertebral bodies. Normal vertebral bodies and endplates. Normal disc space heights. Postsurgical changes with wires projected beside both lower lumbosacral and upper pelvic regions. RAD/Lumbar Spine 2 or 3 Views IMPRESSION: No abnormality of the lumbar spine. Electronically Signed: Charity Thurman MD at 11:46 EDT , CC: JASMINE [employer] Production Line: Signed Normal [facility] Thoracic Spine 3 Viewson Thoracic Spine 3 Views [facility] Services [address] [place] [address] Thoracic Spine 3 Views MR#: [id number] Acct: [id number] Name: KELECHI SMITH Rep #: [id number] : 1980 F 42 From: Charity Thurman MD PCP: JASMINE Suarez Status: REG CLI Study: Thoracic Spine 3 Views Date of Exam: 09/04/23 Exam# [id number] Ordering Dr: Miguel Nova [facility] [employer]ER-C [id number] STUDY: X-RAY - THORACIC SPINE REASON FOR EXAM: Female, 42 years old. Back pain. TECHNIQUE: 3 view(s) of the thoracic spine were obtained. COMPARISON: None. FINDINGS: Normal kyphosis of the thoracic spine. No scoliosis. Mild diffuse intervertebral disc space narrowing. Osteophytes most marked at T8-9, T9-T10, T10-11 and T11-12. Normal soft tissues. RAD/Thoracic Spine 3 Views IMPRESSION: Mild lower thoracic spondylosis. Electronically Signed: Charity Thurman MD at 14:20 EDT Reading Location ID and State: [address] [place] [address] , Service support , CC: JASMINE [employer] Production Line: Signed Normal [facility] Bacteria Ur Culton Bacteria identified Cx Nom (U) ORGANISM ID: 1 10,000 -<50,000 CFU/ml Normal urogenital mari Normal [facility] Comment on above: Performed By: #### 6 30-4 #### [facility] CLIA [id number] [address] [place] [address] [place] [address] [place] CBC W Auto Differential pane l (Bld)on 02-25-2023 Basophils (Bld) [#/Vol] 0.05 10*3/uL Normal <0.11 [facility] Comment on above: Order Comment: Speci men Type: BLOOD SPECIMEN Ordering Facility: [facility] Address: [address] [place] [address] Performed By: #### 5 7021-8 #### [facility] CLIA [id number] [address] [place] [address] [place] Basophils/100 WBC (Bld) 0.6 % Normal [facility] Comment on above: Order Comment: Speci men Type: BLOOD SPECIMEN Ordering Facility: [facility] Address: [address] [place] [address] Performed By: #### 5 7021-8 #### [facility] CLIA [id number] [address] [place] [address] [place] Differential cell count method Nom (Bld) Auto Normal [facility] Comment on above: Order Comment: Speci men Type: BLOOD SPECIMEN Ordering Facility: [facility] Address: [address] [place] [address] Performed By: #### 5 7021-8 #### [facility] CLIA [id number] [address] [place] [address] [place] Eosinophils (Bld) [#/Vol] 0.08 10*3/uL Normal <0.46 [facility] Comment on above: Order Comment: Speci men Type: BLOOD SPECIMEN Ordering Facility: [facility] Address: [address] [place] [address] Performed By: #### 5 7021-8 #### [facility] CLIA [id number] [address] [place] [address] [place] Eosinophils/100 WBC (Bld) 0.9 % Normal [facility] Comment on above: Order Comment: Speci men Type: BLOOD SPECIMEN Ordering Facility: [facility] Address: [address] [place] [address] Performed By: #### 5 7021-8 #### [facility] CLIA [id number] [address] [place] [address] [place] Erythrocyte distribution width (RBC) [Ratio] 11.9 % Normal 11.5-15.0 [facility] Comment on above: Order Comment: Speci men Type: BLOOD SPECIMEN Ordering Facility: [facility] Address: [address] [place] [address] Performed By: #### 5 7021-8 #### [facility] CLIA [id number] [address] [place] [address] [place] Hematocrit (Bld) [Volume fraction] 46.5 % High 36.0-46.0 [facility] Comment on above: Order Comment: Speci men Type: BLOOD SPECIMEN Ordering Facility: [facility] Address: [address] [place] [address] Performed By: #### 5 7021-8 #### [facility] CLIA [id number] [address] [place] [address] [place] Hemoglobin (Bld) [Mass/Vol] 14.9 g/dL Normal 11.5-15.5 [facility] Comment on above: Order Comment: Speci men Type: BLOOD SPECIMEN Ordering Facility: [facility] Address: [address] [place] [address] Performed By: #### 5 7021-8 #### [facility] CLIA [id number] [address] [place] [address] [place] Immature granulocytes (Bld) [#/Vol] 0.03 10*3/uL Normal <0.10 [facility] Comment on above: Order Comment: Speci men Type: BLOOD SPECIMEN Ordering Facility: [facility] Address: [address] [place] [address] Performed By: #### 5 7021-8 #### [facility] CLIA [id number] [address] [place] [address] [place] Immature granulocytes/100 WBC (Bld) 0.3 % Normal [facility] Comment on above: Order Comment: Speci men Type: BLOOD SPECIMEN Ordering Facility: [facility] Address: [address] [place] [address] Performed By: #### 5 7021-8 #### [facility] CLIA [id number] [address] [place] [address] [place] Lymphocytes (Bld) [#/Vol] 2.38 10*3/uL Normal 1.00-4.00 [facility] Comment on above: Order Comment: Speci men Type: BLOOD SPECIMEN Ordering Facility: [facility] Address: [address] [place] [address] Performed By: #### 5 7021-8 #### [facility] CLIA [id number] [address] [place] [address] [place] Lymphocytes/100 WBC (Bld) 27.5 % Normal [facility] Comment on above: Order Comment: Speci men Type: BLOOD SPECIMEN Ordering Facility: [facility] Address: [address] [place] [address] Performed By: #### 5 7021-8 #### [facility] CLIA [id number] [address] [place] [address] [place] MCH (RBC) [Entitic mass] 31.4 pg Normal 26.0-34.0 [facility] Comment on above: Order Comment: Speci men Type: BLOOD SPECIMEN Ordering Facility: [facility] Address: [address] [place] [address] Performed By: #### 5 7021-8 #### [facility] CLIA [id number] [address] [place] [address] [place] MCHC (RBC) [Mass/Vol] 32.0 g/dL Normal 30.5-36.0 [facility] Comment on above: Order Comment: Speci men Type: BLOOD SPECIMEN Ordering Facility: [facility] Address: [address] [place] [address] Performed By: #### 5 7021-8 #### [facility] CLIA [id number] [address] [place] [address] [place] MCV (RBC) [Entitic vol] 97.9 fL Normal 80.0-100.0 [facility] Comment on above: Order Comment: Speci men Type: BLOOD SPECIMEN Ordering Facility: [facility] Address: [address] [place] [address] Performed By: #### 5 7021-8 #### [facility] CLIA [id number] [address] [place] [address] [place] Monocytes (Bld) [#/Vol] 0.76 10*3/uL Normal <0.87 [facility] Comment on above: Order Comment: Speci men Type: BLOOD SPECIMEN Ordering Facility: [facility] Address: [address] [place] [address] Performed By: #### 5 7021-8 #### [facility] CLIA [id number] [address] [place] [address] [place] Monocytes/100 WBC (Bld) 8.8 % Normal [facility] Comment on above: Order Comment: Speci men Type: BLOOD SPECIMEN Ordering Facility: [facility] Address: [address] [place] [address] Performed By: #### 5 7021-8 #### [facility] CLIA [id number] [address] [place] [address] [place] Neutrophils (Bld) [#/Vol] 5.35 10*3/uL Normal 1.45-7.50 [facility] Comment on above: Order Comment: Speci men Type: BLOOD SPECIMEN Ordering Facility: [facility] Address: [address] [place] [address] Performed By: #### 5 7021-8 #### [facility] CLIA [id number] [address] [place] [address] [place] Neutrophils/100 WBC (Bld) 61.9 % Normal [facility] Comment on above: Order Comment: Speci men Type: BLOOD SPECIMEN Ordering Facility: [facility] Address: [address] [place] [address] Performed By: #### 5 7021-8 #### [facility] CLIA [id number] [address] [place] [address] [place] Nucleated RBC (Bld) [#/Vol] 10*3/uL Normal <0.01 [facility] Comment on above: Order Comment: Speci men Type: BLOOD SPECIMEN Ordering Facility: [facility] Address: [address] [place] [address] Performed By: #### 5 7021-8 #### [facility] CLIA [id number] [address] [place] [address] [place] Nucleated RBC/100 WBC (Bld) [Ratio] 0.0 /100 WBC Normal [facility] Comment on above: Order Comment: Speci men Type: BLOOD SPECIMEN Ordering Facility: [facility] Address: [address] [place] [address] Performed By: #### 5 7021-8 #### [facility] CLIA [id number] [address] [place] [address] [place] Platelet mean volume (Bld) [Entitic vol] 9.4 fL Normal 9.0-12.7 [facility] Comment on above: Order Comment: Speci men Type: BLOOD SPECIMEN Ordering Facility: [facility] Address: [address] [place] [address] Performed By: #### 5 7021-8 #### [facility] CLIA [id number] [address] [place] [address] [place] Platelets (Bld) [#/Vol] 422 10*3/uL High 150-400 [facility] Comment on above: Order Comment: Speci men Type: BLOOD SPECIMEN Ordering Facility: [facility] Address: [address] [place] [address] Performed By: #### 5 7021-8 #### [facility] CLIA [id number] [address] [place] [address] [place] RBC (Bld) [#/Vol] 4.75 10*6/uL Normal 3.90-5.20 [facility] Comment on above: Order Comment: Speci men Type: BLOOD SPECIMEN Ordering Facility: [facility] Address: [address] [place] [address] Performed By: #### 5 7021-8 #### [facility] CLIA [id number] [address] [place] [address] [place] WBC (Bld) [#/Vol] 8.65 10*3/uL Normal 3.70-11.00 [facility] Comment on above: Order Comment: Speci men Type: BLOOD SPECIMEN Ordering Facility: [facility] Address: [address] [place] [address] Performed By: #### 5 7021-8 #### [facility] CLIA [id number] [address] [place] [address] [place] Comprehensive metabolic 2000 panelon 02-25-2023 Albumin [Mass/Vol] 4.6 g/dL Normal 3.9-4.9 [facility] Comment on above: Order Comment: Speci men Type: BLOOD SPECIMEN Ordering Facility: [facility] Address: [address] [place] [address] Performed By: #### 2 4323-8, 3016-3 #### [facility] CLIA [id number] [address] [place] [id number] [place] ALP [Catalytic activity/Vol] 59 U/L Normal 34-123 [facility] Comment on above: Order Comment: Speci men Type: BLOOD SPECIMEN Ordering Facility: [facility] Address: [address] [facility], [place] [address] Performed By: #### 2 4323-8, 3016-3 #### [facility] CLIA [id number] [address] [place] [id number] [place] ALT [Catalytic activity/Vol] 16 U/L Normal 7-38 [facility] Comment on above: Order Comment: Speci men Type: BLOOD SPECIMEN Ordering Facility: [facility] Address: [address] [facility], [place] [address] Performed By: #### 2 4323-8, 3016-3 #### [facility] CLIA [id number] [address] [place] [address] [place] Anion gap [Moles/Vol] 10 mmol/L Normal 9-18 [facility] Comment on above: Order Comment: Speci men Type: BLOOD SPECIMEN Ordering Facility: [facility] Address: [address] [place] [address], [place] [address] Performed By: #### 2 4323-8, 3016-3 #### [facility] CLIA [id number] [address] [place] [address] [place] AST [Catalytic activity/Vol] 26 U/L Normal 13-35 [facility] Comment on above: Order Comment: Speci men Type: BLOOD SPECIMEN Ordering Facility: [facility] Address: [address] [facility], [place] [address] Performed By: #### 2 4323-8, 3016-3 #### [facility] CLIA [id number] [address] [place], [place] [id number] [place] Bilirubin [Mass/Vol] 0.7 mg/dL Normal 0.2-1.3 [facility] Comment on above: Order Comment: Speci men Type: BLOOD SPECIMEN Ordering Facility: [facility] Address: [address] [place] [address], [place] [address] Performed By: #### 2 4323-8, 3016-3 #### [facility] CLIA [id number] [address] [place] [id number] [place] Calcium [Mass/Vol] 10.1 mg/dL Normal 8.5-10.2 [facility] Comment on above: Order Comment: Speci men Type: BLOOD SPECIMEN Ordering Facility: [facility] Address: [address] [place] [address], [place] [address] Performed By: #### 2 4323-8, 6-3 #### [facility] CLIA [id number] [address] [place], [place] [address] [place] Chloride [Moles/Vol] 101 mmol/L Normal 97-105 [facility] Comment on above: Order Comment: Speci men Type: BLOOD SPECIMEN Ordering Facility: [facility] Address: [address] [place] [address], [place] [address] Performed By: #### 2 4323-8, 3015-3 #### [facility] CLIA [id number] [address] [place], [place] [id number] [place] CO2 [Moles/Vol] 23 mmol/L Normal 22-30 [facility] Comment on above: Order Comment: Speci men Type: BLOOD SPECIMEN Ordering Facility: [facility] Address: [address] [place] [address], [place] [address] Performed By: #### 2 4323-8, 6-3 #### [facility] CLIA [id number] [address] [address] [place] Creatinine [Mass/Vol] 0.89 mg/dL Normal 0.58-0.96 [facility] Comment on above: Order Comment: Speci men Type: BLOOD SPECIMEN Ordering Facility: [facility] Address: [address] [place] [address], [place] [address] Performed By: #### 2 4323-8, 6-3 #### [facility] CLIA [id number] [address] [place] [address] [place] Creatinine and Glomerular filtration rate.predicted panel (S/P/Bld) 84 mL/min/1.73m??? Normal >=60 [facility] Comment on above: Order Comment: Wilder woodard Type: BLOOD SPECIMEN Ordering Facility: [facility] Address: [address] [place] [address], [place] [address] Result Comment: Sandy mated Glomerular Filtration Rate (eGFR) is calculated using the 2020 CKD-EPI creatinine equation. This equation utilizes serum creatinine, sex, and age as parameters. The creatinine assay has traceable calibration to isotope dilution-mass spectrometry. Refer to KDIGO guidelines for clinical interpretation. In patients with unstable renal function, e.g. those with acute kidney injury, the eGFR may not accurately reflect actual GFR. Performed By: #### 2 4323-8, 3016-3 #### [facility] CLIA [id number] [address] [place] [address] [place] Glucose [Mass/Vol] 77 mg/dL Normal 74-99 [facility] Comment on above: Order Comment: Wilder woodard Type: BLOOD SPECIMEN Ordering Facility: [facility] Address: [address] [place] [address], [place] [address] Result Comment: The [place] [employer] (ADA) provides guidance for cutoff values for fasting glucose and random glucose. The ADA defines fasting as no caloric intake for at least 8 hours. Fasting plasma glucose results between 100 to 125 mg/dL indicate increased risk for diabetes (prediabetes). Fasting plasma glucose results greater than or equal to 126 mg/dL meet the criteria for diagnosis of diabetes. In the absence of unequivocal hyperglycemia, results should be confirmed by repeat testing. In a patient with classic symptoms of hyperglycemia or hyperglycemic crisis, random plasma glucose results greater than or equal to 200 mg/dL meet the criteria for diagnosis of diabetes. Reference: Standards of Medical Care in Diabetes 2016, [place] [employer]. Diabetes Care. 2016.39(Suppl 1). Performed By: #### 2 4323-8, 3016-3 #### [facility] CLIA [id number] [address] [place] [id number] [place] Potassium [Moles/Vol] 4.6 mmol/L Normal 3.7-5.1 [facility] Comment on above: Order Comment: Speci men Type: BLOOD SPECIMEN Ordering Facility: [facility] Address: [address] [place] [address], [place] [address] Performed By: #### 2 4323-8, 3016-3 #### [facility] CLIA [id number] [address] [place] [address] [place] Protein [Mass/Vol] 7.5 g/dL Normal 6.3-8.0 [facility] Comment on above: Order Comment: Speci men Type: BLOOD SPECIMEN Ordering Facility: [facility] Address: [address] [place] [address], [place] [address] Performed By: #### 2 4323-8, 3016-3 #### [facility] CLIA [id number] [address] [place] [address] [place] Sodium [Moles/Vol] 134 mmol/L Low 136-144 [facility] Comment on above: Order Comment: Speci men Type: BLOOD SPECIMEN Ordering Facility: [facility] Address: [address] [place] [address], [place] [address] Performed By: #### 2 4323-8, 3016-3 #### [facility] CLIA [id number] [address] [place], [place] [id number] [place] Urea nitrogen [Mass/Vol] 12 mg/dL Normal 7-21 [facility] Comment on above: Order Comment: Speci men Type: BLOOD SPECIMEN Ordering Facility: [facility] Address: [address] [place] [address], [place] [address] Performed By: #### 2 4323-8, 3016-3 #### [facility] CLIA [id number] [address] [place] [id number] [place] TSH SerPl-aCncon 02-25-2023 TSH Qn 1.790 m[IU]/L Normal 0.270-4.200 [facility] Comment on above: Order Comment: Speci men Type: BLOOD SPECIMEN Ordering Facility: [facility] Address: [address] [place] [address] Result Comment: If t he patient is , TSH reference range varies by gestational period: First Trimester (weeks 9-12): 0.180-2.990 mIU/L Second Trimester: 0.110-3.980 mIU/L Third Trimester: 0.480-4.710 mIU/L Abel Hanson et al. A Practical Approach for the Verifications and Determination of Site- and Trimester-Specific Reference Intervals for Thyroid Function tests in . Thyroid, 2019:29:3:412-420. Piero Melvin, et al. 2017 Guidelines of the [place] Thyroid Association for the Diagnosis and Management of Thyroid Disease during and the . Thyroid, 2017:27:3:315-389. Performed By: #### 2 4323-8, 3016-3 #### [facility] CLIA [id number] [address] [place] [address] [place] URINALYSIS, DIPSTICK ONLYon 02-25-2023 Bilirubin Ql (U) Negative Normal Negative [facility] Comment on above: Order Comment: Speci men Type: URINE SPECIMEN Ordering Facility: [facility] Address: [address] [place] [address] Performed By: #### U A #### [facility] CLIA [id number] [address] [place] [address] [place] Clarity (Unsp spec) Clear Normal Clear [facility] Comment on above: Order Comment: Speci men Type: URINE SPECIMEN Ordering Facility: [facility] Address: [address] [place] [address] Performed By: #### U A #### [facility] CLIA [id number] [address] [place] [address] [place] Color (U) Yellow Normal Yellow [facility] Comment on above: Order Comment: Speci men Type: URINE SPECIMEN Ordering Facility: [facility] Address: [address] [place] [address], [place] [address] Performed By: #### U A #### [facility] CLIA [id number] [address] [place] [id number] [place] Glucose Test strip (U) [Mass/Vol] Negative Normal Negative [facility] Comment on above: Order Comment: Speci men Type: URINE SPECIMEN Ordering Facility: [facility] Address: [address] [place] [address], [place] [address] Performed By: #### U A #### [facility] CLIA [id number] [address] [place] [address] [place] Hemoglobin Ql (U) Negative Normal Negative [facility] Comment on above: Order Comment: Speci men Type: URINE SPECIMEN Ordering Facility: [facility] Address: [address] [place] [address], [place] [address] Performed By: #### U A #### [facility] CLIA [id number] [address] [place] [address] [place] Ketones Ql (U) Trace Abnormal Negative [facility] Comment on above: Order Comment: Speci men Type: URINE SPECIMEN Ordering Facility: [facility] Address: [address] [place] [address], [place] [address] Performed By: #### U A #### [facility] CLIA [id number] [address] [place] [id number] [place] Leukocyte esterase Test strip Ql (U) Negative Normal Negative [facility] Comment on above: Order Comment: Speci men Type: URINE SPECIMEN Ordering Facility: [facility] Address: [address] [place] [address] Performed By: #### U A #### [facility] CLIA [id number] [address] [place] [id number] [place] Nitrite Ql (U) Negative Normal Negative [facility] Comment on above: Order Comment: Speci men Type: URINE SPECIMEN Ordering Facility: [facility] Address: [address] [place] [address] Performed By: #### U A #### [facility] CLIA [id number] [address] [place] [address] [place] pH (U) 5.5 [pH] Normal <8.5 [facility] Comment on above: Order Comment: Speci men Type: URINE SPECIMEN Ordering Facility: [facility] Address: [address] [place] [address] Performed By: #### U A #### [facility] CLIA [id number] [address] [place] [address] [place] OF SHARI Protein (U) [Mass/Vol] Negative Normal Negative [facility] Comment on above: Order Comment: Speci men Type: URINE SPECIMEN Ordering Facility: [facility] Address: [address] [place] [address] Performed By: #### U A #### [facility] CLIA [id number] [address] [place] [address] [place] Specific gravity (U) [Rel density] 1.022 Normal 1.005-1.030 [facility] Comment on above: Order Comment: Speci men Type: URINE SPECIMEN Ordering Facility: [facility] Address: [address] [place] [address] Performed By: #### U A #### [facility] CLIA [id number] [address] [place] [address] [place] Urobilinogen Ql (U) 0.2 EU/dL Normal 0.2-1.0 EU/dL [facility] Comment on above: Order Comment: Speci men Type: URINE SPECIMEN Ordering Facility: [facility] Address: [address] [place] [address] Performed By: #### U A #### [facility] CLIA [id number] [address] [place] [address] [address] [place] SCRN MAMM (CAD)W/AALIYAH BILATo n 10-11-2022 SCRN MAMM (CAD)W/AALIYAH BILAT [facility] Services [address] [place] [address] SCRN MAMM (CAD)W/AALIYAH BILAT MR#: [id number] Acct: [id number] Name: KELECHI SMITH Rep #: [id number] : 1980 F 41 From: Fortino robles MD PCP: Miguel Nova NP-C Status: [facility] Study: SCRN MAMM (CAD)W/AALIYAH BILAT Date of Exam: 01/25 Exam# [id number] Ordering Dr: Miguel Nova NP 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 Routine annual screening examination. PERTINENT HISTORY: Grandmother with breast cancer. TECHNIQUE: Digital bilateral breast aaliyah (3D mammographic acquisition) in the CC and MLO projections. 2-D mediolateral oblique (MLO) and craniocaudad (CC) views of both breasts were obtained. CAD: Full Field Digital Mammography with Computer Added Detection was performed. COMPARISON: Comparison is made with prior study June 26, 2017. FINDINGS: Breast Composition: The breasts are heterogeneously dense, which may obscure small masses. There are no dominant masses or suspicious calcifications. No other significant abnormalities are identified. There has been no significant change since the prior study. BI/SCRN MAMM (CAD)W/AALIYAH BILAT IMPRESSION: Stable bilateral screening mammogram. Yearly follow-up mammogram recommended. (A) ASSESSMENT CATEGORY: BIRADS Category 1: Negative. A letter regarding these results will be sent to the patient by the facility within 30 days. Approximately 10% of breast cancers are not detected by mammography. A normal mammogram should not delay biopsy of a clinically suspicious abnormality. [id number] Electronically Signed: Fortino Blood MD at 11:16 EDT , CC: JASMINE Nova Assembler Production Line: Signed Normal [facility] Absolute lymphocyte countOrd ered By: Miguel Nova on 10-02-2022 Lymphocytes Auto (Unsp spec) [#/Vol] 1.73 10*3/uL 0.83-4.51 [facility] Basophil percentageOrdered B y: Miguel Nova on 10-02-2022 Basophils/100 WBC (Bld) 0.6 % 0-1 [facility] Bilirubin [Mass/Vol] 0.50 mg/dL 0.20-1.00 [facility] Comment on above: For patients on eltr ombopag therapy, use of Dimension [place] TBIL is not recommended. Chloride [Moles/Vol] 106 mmol/L 98-107 [facility] Cholesterol [Mass/Vol] 144 mg/dL <200 [facility] Comment on above: <200 mg/dL Desirable 200-240 mg/dL Borderline >240 mg/dL High Risk Eosinophils/100 WBC (Bld) 1.1 % 0-5 [facility] Glucose [Mass/Vol] 93 mg/dL 74-106 [facility] Neutrophils (Bld) [#/Vol] 3.9 10*3/uL 2.0-7.7 [facility] Neutrophils/100 WBC (Bld) 61.4 % 47-70 [facility] Potassium [Moles/Vol] 4.3 mmol/L 3.5-5.1 [facility] Protein [Mass/Vol] 7.1 g/dL 6.4-8.2 [facility] Sodium [Moles/Vol] 138 mmol/L 136-145 [facility] Triglyceride [Mass/Vol] 79 mg/dL <199 [facility] Comment on above: The drugs N-Acetylcy steine and Metamizole may falsely depress this assay.Serum Triglycerides Reference Interval Normal <150 mg/dL Borderline high 150 - 199 mg/dL High 200 - 499 mg/dL Very High > or = 500 mg/dL WBC (Bld) [#/Vol] 6.3 10*3/uL 4.4-11.0 [facility] Blood erythrocytes count (nu mber/volume)Ordered By: Miguel Nova on 10-02-2022 RBC (Bld) [#/Vol] 4.54 10*6/uL 4.2-5.4 [facility] Blood hemoglobin measurement (mass/volume)Ordered By: Miguel Nova on 10-02-2022 Hemoglobin (Bld) [Mass/Vol] 13.8 g/dL 12.0-15.0 [facility] Blood lymphocytes/100 leukoc ytesOrdered By: Miguel Nova on 10-02-2022 Lymphocytes/100 WBC (Bld) 27.4 % 19-41 [facility] Blood monocytes/100 leukocyt esOrdered By: Miguel Nova on 10-02-2022 Monocytes/100 WBC (Bld) 9.2 % 0-10 [facility] Blood platelet mean volumeOr dered By: Miguel Nova on 10-02-2022 Platelet mean volume (Bld) [Entitic vol] 9.2 fL 6.2-12.0 [facility] CBC W/Diff, Automatedon 09-04 Absolute Lymph 1.73 X10 3/uL Normal 0.83-4.51 [facility] Comment on above: Performed By: #### L 501.9520, L500.4100, L100.0100, L500.4050, L506.1000, L503.0105 #### [facility] [address] [place], [place], [id number] Absolute Neut 3.9 X10 3/uL Normal 2.0-7.7 [facility] Comment on above: Performed By: #### L 501.9520, L500.4100, L100.0100, L500.4050, L506.1000, L503.0105 #### [facility] [address] [place], [address] Basophils/100 WBC (Bld) 0.6 % Normal 0-1 [facility] Comment on above: Performed By: #### L 501.9520, L500.4100, L100.0100, L500.4050, L506.1000, L503.0105 #### [facility] [address] [place], [address] Eosinophils/100 WBC (Bld) 1.1 % Normal 0-5 [facility] Comment on above: Performed By: #### L 501.9520, L500.4100, L100.0100, L500.4050, L506.1000, L503.0105 #### [facility] [address] [place], [address] Erythrocyte distribution width (RBC) [Ratio] 11.9 % Normal 11.6-14.6 [facility] Comment on above: Performed By: #### L 501.9520, L500.4100, L100.0100, L500.4050, L506.1000, L503.0105 #### [facility] [address] [place], [address] Hematocrit (Bld) [Volume fraction] 42.8 % Normal 37-47 [facility] Comment on above: Performed By: #### L 501.9520, L500.4100, L100.0100, L500.4050, L506.1000, L503.0105 #### [facility] [address] [place], [address] Hemoglobin (Bld) [Mass/Vol] 13.8 g/dL Normal 12.0-15.0 [facility] Comment on above: Performed By: #### L 501.9520, L500.4100, L100.0100, L500.4050, L506.1000, L503.0105 #### [facility] [address] [place], [address] IG% 0.300 Normal 0.0-0.9 [facility] Comment on above: Result Comment: IG% - Immature Granulocytes (promyelocytes, myelocytes and metamyelocytes) > 1% indicates that a LEFT SHIFT is Present. Performed By: #### L 501.9520, L500.4100, L100.0100, L500.4050, L506.1000, L503.0105 #### [facility] [address] [place], [address] Lymphocytes/100 WBC (Bld) 27.4 % Normal 19-41 [facility] Comment on above: Performed By: #### L 501.9520, L500.4100, L100.0100, L500.4050, L506.1000, L503.0105 #### [facility] [address] [facility] [place], [address] MCH (RBC) [Entitic mass] 30.4 pg Normal 27.0-32.0 [facility] Comment on above: Performed By: #### L 501.9520, L500.4100, L100.0100, L500.4050, L506.1000, L503.0105 #### [facility] [address] [place], [address] MCHC (RBC) [Mass/Vol] 32.2 g/dL Normal 32-36 [facility] Comment on above: Performed By: #### L 501.9520, L500.4100, L100.0100, L500.4050, L506.1000, L503.0105 #### [facility] [address] [place], [address] MCV (RBC) [Entitic vol] 94.3 fL Normal 81-99 [facility] Comment on above: Performed By: #### L 501.9520, L500.4100, L100.0100, L500.4050, L506.1000, L503.0105 #### [facility] [address] [place], [address] Monocytes/100 WBC (Bld) 9.2 % Normal 0-10 [facility] Comment on above: Performed By: #### L 501.9520, L500.4100, L100.0100, L500.4050, L506.1000, L503.0105 #### [facility] [address] [place], [address] Neutrophils/100 WBC (Bld) 61.4 % Normal 47-70 [facility] Comment on above: Performed By: #### L 501.9520, L500.4100, L100.0100, L500.4050, L506.1000, L503.0105 #### [facility] [address] [place], [address] Nucleated RBC (Bld) [#/Vol] 0 10*3/uL Normal 0-5 [facility] Comment on above: Performed By: #### L 501.9520, L500.4100, L100.0100, L500.4050, L506.1000, L503.0105 #### [facility] [address] [place], [address] Platelet mean volume (Bld) [Entitic vol] 9.2 fL Normal 6.2-12.0 [facility] Comment on above: Performed By: #### L 501.9520, L500.4100, L100.0100, L500.4050, L506.1000, L503.0105 #### [facility] [address] [place], [address] Platelets (Bld) [#/Vol] 358 10*3/uL Normal 150-450 [facility] Comment on above: Performed By: #### L 501.9520, L500.4100, L100.0100, L500.4050, L506.1000, L503.0105 #### [facility] [address] [place], [address] RBC (Bld) [#/Vol] 4.54 10*6/uL Normal 4.2-5.4 [facility] Comment on above: Performed By: #### L 501.9520, L500.4100, L100.0100, L500.4050, L506.1000, L503.0105 #### [facility] [address] [place], [address] RDW SD 41.6 fl Normal 35.1-43.9 [facility] Comment on above: Performed By: #### L 501.9520, L500.4100, L100.0100, L500.4050, L506.1000, L503.0105 #### [facility] [address] [place], [address] WBC (Bld) [#/Vol] 6.3 10*3/uL Normal 4.4-11.0 [facility] Comment on above: Performed By: #### L 501.9520, L500.4100, L100.0100, L500.4050, L506.1000, L503.0105 #### [facility] [address] [place], [address] Comprehensive Metabolic Prof [facility] 10-02-2022 Albumin [Mass/Vol] 3.8 g/dL Normal 3.2-5.0 [facility] Comment on above: Performed By: #### L 501.9520, L500.4100, L100.0100, L500.4050, L506.1000, L503.0105 #### [facility] [address] [place], [address] Albumin/Globulin [Mass ratio] 1.2 {ratio} Normal 0.9-2.4 [facility] Comment on above: Performed By: #### L 501.9520, L500.4100, L100.0100, L500.4050, L506.1000, L503.0105 #### [facility] [address] [place], [address] ALK P 63 U/L Normal 45-117 [facility] Comment on above: Performed By: #### L 501.9520, L500.4100, L100.0100, L500.4050, L506.1000, L503.0105 #### [facility] [address] [place], [address] ALT [Catalytic activity/Vol] 23 U/L Normal 13-56 [facility] Comment on above: Performed By: #### L 501.9520, L500.4100, L100.0100, L500.4050, L506.1000, L503.0105 #### [facility] [address] [place], [address] AST [Catalytic activity/Vol] 22 U/L Normal 15-37 [facility] Comment on above: Performed By: #### L 501.9520, L500.4100, L100.0100, L500.4050, L506.1000, L503.0105 #### [facility] [address] [place], [address] Bilirubin [Mass/Vol] 0.50 mg/dL Normal 0.20-1.00 [facility] Comment on above: Result Comment: For patients on eltrombopag therapy, use of Dimension [place] TBIL is not recommended. Performed By: #### L 501.9520, L500.4100, L100.0100, L500.4050, L506.1000, L503.0105 #### [facility] [address] [place], [address] BUN/CRE 14.7 RATIO Normal 10-20 [facility] Comment on above: Performed By: #### L 501.9520, L500.4100, L100.0100, L500.4050, L506.1000, L503.0105 #### [facility] [address] [place], [address] CA,Total 8.9 mg/dL Normal 8.5-10.1 [facility] Comment on above: Performed By: #### L 501.9520, L500.4100, L100.0100, L500.4050, L506.1000, L503.0105 #### [facility] [address] [place], [address] Chloride [Moles/Vol] 106 mmol/L Normal 98-107 [facility] Comment on above: Performed By: #### L 501.9520, L500.4100, L100.0100, L500.4050, L506.1000, L503.0105 #### [facility] [address] [place], [address] CO2 [Moles/Vol] 26.0 mmol/L Normal 21.0-32.0 [facility] Comment on above: Performed By: #### L 501.9520, L500.4100, L100.0100, L500.4050, L506.1000, L503.0105 #### [facility] [address] [place], [address] Creatinine [Mass/Vol] 0.88 mg/dL Normal 0.55-1.02 [facility] Comment on above: Result Comment: The validity of the calculated GFR GFRAA in patients over 70 years has not been determined. Clinical correlation is essential. Performed By: #### L 501.9520, L500.4100, L100.0100, L500.4050, L506.1000, L503.0105 #### [facility] [address] [place], [address] EST GFR - AA 91 mL/min Normal >60 [facility] Comment on above: Result Comment: Afri can Banglades[place] GFR Calc Performed By: #### L 501.9520, L500.4100, L100.0100, L500.4050, L506.1000, L503.0105 #### [facility] [address] [place], [address] GAP 6 Normal 5-15 [facility] Comment on above: Performed By: #### L 501.9520, L500.4100, L100.0100, L500.4050, L506.1000, L503.0105 #### [facility] [address] [place], [address] GFR/1.73 sq M.predicted among non-blacks MDRD (S/P/Bld) [Vol rate/Area] 75 mL/min/{1.73_m2} Normal >60 [facility] Comment on above: Result Comment: Non- GFR Calc Performed By: #### L 501.9520, L500.4100, L100.0100, L500.4050, L506.1000, L503.0105 #### [facility] [address] [place], [address] Globulin (S) [Mass/Vol] 3.3 g/dL Normal 2.2-4.2 [facility] Comment on above: Performed By: #### L 501.9520, L500.4100, L100.0100, L500.4050, L506.1000, L503.0105 #### [facility] [address] [place], [address] Glucose [Mass/Vol] 93 mg/dL Normal 74-106 [facility] Comment on above: Performed By: #### L 501.9520, L500.4100, L100.0100, L500.4050, L506.1000, L503.0105 #### [facility] [address] [place], [address] Potassium [Moles/Vol] 4.3 mmol/L Normal 3.5-5.1 [facility] Comment on above: Performed By: #### L 501.9520, L500.4100, L100.0100, L500.4050, L506.1000, L503.0105 #### [facility] [address] [place], [address] Sodium [Moles/Vol] 138 mmol/L Normal 136-145 [facility] Comment on above: Performed By: #### L 501.9520, L500.4100, L100.0100, L500.4050, L506.1000, L503.0105 #### [facility] [address] [place], [address] T PROT 7.1 g/dL Normal 6.4-8.2 [facility] Comment on above: Performed By: #### L 501.9520, L500.4100, L100.0100, L500.4050, L506.1000, L503.0105 #### [facility] [address] [place], [address] Urea nitrogen [Mass/Vol] 13 mg/dL Normal 7-18 [facility] Comment on above: Performed By: #### L 501.9520, L500.4100, L100.0100, L500.4050, L506.1000, L503.0105 #### [facility] [address] [place], [address] Determination of erythrocyte mean corpuscular volume (MCV)Ordered By: Miguel Nova on 10-02-2022 MCV (RBC) [Entitic vol] 94.3 fL 81-99 [facility] Hematocrit Auto (Bld) [Volum e fraction]Ordered By: Miguel Nova on 10-02-2022 Hematocrit (Bld) [Volume fraction] 42.8 % 37-47 [facility] Internal Medicine Office Vis marty 10-02-2022 Internal Medicine Office Visit [facility] [address] [place] [address] [address] [place] [address] OFFICE VISIT Date of Service: 10/02/22 MR#: [id number] Acct: [id number] Name: KELECHI SMITH Rep #: [id number] : 1980 Provider: JASMINE Nova Age/Sex: 41/F Location: [facility] [place] [place] Status: Signed Intake Vital Signs 08/22/21 14:54 10/02/22 09:15 Height 5 ft 7 in 5 ft 7 in Weight: 156 lb BMI 24.4 BP 104/62 Blood Pressure Location Lt brachial Position Sitting Respiration 14 Pulse 81 Pulse Source Monitor Temp 98.1 F Temp Source Temporal Pulse Oximetry (%) 99 Oxygen Delivery Method room air Intake Visit Reasons: Routine Chief Complaint: CHECK UP Is patient in pain?: No Allergies No Known Allergies Allergy (Verified 10/02/22 09:02) Medications levonorgestrel 21 mcg/24 hours (8 yrs) 52 mg intrauterine device (Mirena) 1 insert intrauterine ONCE 01/13/18 [History Confirmed 10/02/22] escitalopram oxalate 20 mg tablet (Lexapro) 20 mg PO DAILY #90 tabs 09/17/22 [Rx Confirmed 10/02/22] PFSH Medical History (Updated 10/02/22 @ 09:27 by Miguel Nova [employer]ER, [employer]ER-C) Anxiety Encounter for preventative adult health care examination Migraines Vitamin deficiency Surgical History history vein embolization Family History Grandmother Breast cancer Grandfather Cancer Skin cancer Mother Thyroid disorder Aunt Thyroid disorder Social History Smoking Status: Never smoker alcohol intake: current alcohol intake frequency: holidays/special occasions only Alcohol type: wine substance use type: does not use what type of physical activity do you participate in: weight training and other details: Cardio frequency: 5-6 times per week HPI HPI Chief Complaint: CHECK UP Details: KELECHI SMITH, is a 41 F who presents to the office today for follow-up of her chronic conditions. She has a past medical history as listed above. The patient states that overall she is doing well. 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 She states that her immunizations are up-to-date. She is due for annual lab work and would like her vitamin levels assessed as she has a history of vitamin deficiency. She states that her anxiety is well controlled on her current SSRI. Denies any thoughts of harming self or others. She is a non-smoker and only utilizes alcohol in moderation. She states that she tries to follow a healthy diet, exercise, and healthy lifestyle choices. Denies any acute concerns. Past medical, family, and social history reviewed and not pertinent to the current visit and all other systems reviewed and negative with exception of those listed above. ROS Const Constitutional: No body ache, chills, excessive sweating, fatigue, fever(s), frequent falls, headache(s), snoring, weakness, weight change, sleep problems or change in appetite Eyes Eyes: No blurry vision, change in vision, eye pain or Light sensitivity ENT ENT: No abnormal hearing, ear or mastoid pain, tinnitus, nasal congestion, headache(s), neck pain or sore throat Resp Respiratory: No cough, shortness of breath, snoring or wheezing Cardio Cardiology: No chest pain at rest, chest pain with exertion, excessive sweating, shortness of breath, dyspnea on exertion, lightheadedness, orthopnea or palpitations Gastro GI: No abdominal pain, change in bowel habits, constipation, cramping, diarrhea, nausea/dyspepsia or vomiting Genitourinary-Female : No burning urination, painful urination, urinary incontinence, urinary frequency or abnormal vaginal bleeding Musc Musculoskeletal: No abnormal gait, joint pain, back pain, limited range of motion, neck pain, numbness or tingling Skin Skin: No dry skin, redness, lesions, itchy eyes, rash or wounds Neuro Neurology: No abnormal gait, abnormal hearing, abnormal speech, dizziness, weakness, frequent falls, headache(s), memory loss, numbness or tingling Psych Psychiatric: No anxiety, No change in appetite, No depression, No memory loss and No Thoughts of harming yourself/Others Endo Endocrine: No cold intolerance, excessive sweating, fatigue, flushing, heat intolerance, increased thirst/drinking, increased hunger or weight change Aller/Imm Allergy/Immunologic: No itchy eyes, seasonal allergy symptoms, hives or wheezing [place]/Lymp Hematologic/Lymphati c: No easy bleeding, easy bruising or enlarged lymph nodes Exam Const General: cooperative, comfortable and no acute distress Nutritional Appearance: average body habitus and well nourished Orientation: alert and oriented x3 Limitations: mental status not altered [facility] Head: normal to in (more content not included)... Normal [facility] - Chemistry and C hemistry - challengeOrdered By: Miguel Nova on 10-02-2022 ALP [Catalytic activity/Vol] 63 U/L 45-117 [facility] ALT [Catalytic activity/Vol] 23 U/L 13-56 [facility] CO2 [Moles/Vol] 26.0 mmol/L 21.0-32.0 [facility] Cobalamin (Vitamin B12) [Mass/Vol] 350 pg/mL 211-911 [facility] Globulin (S) [Mass/Vol] 3.3 g/dL 2.2-4.2 [facility] Urea nitrogen/Creatinine [Mass ratio] 14.7 mg/mg 10-20 [facility] - Hematology and Cell countsOrdered By: Miguel Nova on 10-02-2022 Erythrocyte distribution width (RBC) [Entitic vol] 41.6 fL 35.1-43.9 [facility] Erythrocyte distribution width (RBC) [Ratio] 11.9 % 11.6-14.6 [facility] Immature granulocytes/100 WBC (Bld) 0.300 % 0.0-0.9 [facility] Comment on above: IG% - Immature Granu locytes (promyelocytes, myelocytes and metamyelocytes) > 1% indicates that a LEFT SHIFT is Present. MCH (RBC) [Entitic mass] 30.4 pg 27.0-32.0 [facility] Nucleated RBC/100 WBC (Bld) [Ratio] 0 % 0-5 [facility] Lipid Profileon 10-02-2022 Cholesterol [Mass/Vol] 144 mg/dL Normal 200 [facility] Comment on above: Result Comment: <200 mg/dL Desirable 200-240 mg/dL Borderline >240 mg/dL High Risk Performed By: #### L 501.9520, L500.4100, L100.0100, L500.4050, L506.1000, L503.0105 #### [facility] [address] [place], [address] Cholesterol in HDL [Mass/Vol] 56 mg/dL Normal [facility] Comment on above: Result Comment: The drugs N-Acetylcysteine and Metamizole may falsely depress this assay. Reference Range HDL <40 mg/dL Low HDL Cholesterol HDL >or= 60 mg/dL High HDL Cholesterol Performed By: #### L 501.9520, L500.4100, L100.0100, L500.4050, L506.1000, L503.0105 #### [facility] [address] [place], [address] Cholesterol in LDL [Mass/Vol] 72 mg/dL Normal 0-130 [facility] Comment on above: Performed By: #### L [id number], L500.4100, L100.0100, L500.4050, L506.1000, L503.0105 #### [facility] [address] [place], [address] Cholesterol in VLDL [Mass/Vol] 16 mg/dL Normal 5-40 [facility] Comment on above: Performed By: #### L [id number], L500.4100, L100.0100, L500.4050, L506.1000, L503.0105 #### [facility] [address] [place], [address] Triglyceride [Mass/Vol] 79 mg/dL Normal [facility] Comment on above: Result Comment: The drugs N-Acetylcysteine and Metamizole may falsely depress this assay. Serum Triglycerides Reference Interval Normal <150 mg/dL Borderline high 150 - 199 mg/dL High 200 - 499 mg/dL Very High > or = 500 mg/dL Performed By: #### L [id number], L500.4100, L100.0100, L500.4050, L506.1000, L503.0105 #### [facility] [address] [place], [address] MCHC Auto (RBC) [Mass/Vol]Or dered By: Miguel Nova on 10-02-2022 MCHC (RBC) [Mass/Vol] 32.2 g/dL 32-36 [facility] No Panel InformationOrdered By: Miguel Nova on 10-02-2022 Estimated GFR (MDRD) Amer 91 mL/min >60 [facility] Comment on above: GFR Calc Estimated GFR (MDRD) Non-Af Amer 75 mL/min >60 [facility] Comment on above: Non- GFR Calc Thyroid Stimulating Hormone (TSH) 1.53 uIU/mL 0.358-3.74 [facility] Vitamin D 25-Hydroxy 46.8 ng/mL [facility] Comment on above: Vitamin D 25(OH) Sta tus Range Deficiency <20 ng/mL (50nmol/L) Insufficiency 20 - 30 ng/mL (50 - 75 nmol/L) Sufficiency 30 - 100 ng/mL (75 - 250 nmol/L) Toxicity >100 ng/mL (>250 nmol/L) Platelets bldOrdered By: Buffy Nova on 10-02-2022 Platelets (Bld) [#/Vol] 358 10*3/uL 150-450 [facility] Serum or plasma albumin symone urement (mass/volume)Ordered By: Miguel Nova on 10-02-2022 Albumin [Mass/Vol] 3.8 g/dL 3.2-5.0 [facility] Serum or plasma albumin/glob ulin mass ratioOrdered By: Miguel Nova on 10-02-2022 Albumin/Globulin [Mass ratio] 1.2 {ratio} 0.9-2.4 [facility] Serum or plasma calcium symone urement (mass/volume)Ordered By: Miguel Nova on 10-02-2022 Calcium [Mass/Vol] 8.9 mg/dL 8.5-10.1 [facility] Serum or plasma cholesterol in HDL measurement (mass/volume)Ordered By: Miguel Nova on 10-02-2022 Cholesterol in HDL [Mass/Vol] 56 mg/dL >40 [facility] Comment on above: The drugs N-Acetylcy steine and Metamizole may falsely depress this assay. Reference Range HDL <40 mg/dL Low HDL Cholesterol HDL >or= 60 mg/dL High HDL Cholesterol Serum or plasma cholesterol in VLDL measurement (mass/volume)Ordered By: Miguel Nova on 10-02-2022 Cholesterol in VLDL [Mass/Vol] 16 mg/dL 5-40 [facility] Serum or plasma creatinine m easurement (mass/volume)Ordered By: Miguel Nova on 10-02-2022 Creatinine [Mass/Vol] 0.88 mg/dL 0.55-1.02 [facility] Comment on above: The validity of the calculated GFR & GFRAA in patients over 70 years has not been determined. Clinical correlation is essential. Serum or plasma low density lipoprotein (LDL) cholesterol measurement (mass/volume)Ordered By: Miguel Nova on 10-02-2022 Cholesterol in LDL [Mass/Vol] 72 mg/dL 0-130 [facility] Serum or plasma urea nitroge n measurement (mass/volume)Ordered By: Miguel Nova on 10-02-2022 Urea nitrogen [Mass/Vol] 13 mg/dL 7-18 [facility] Thin prep Papanicolaou smear with manual screeningOrdered By: Miguel Nova on 10-02-2022 Thin prep Papanicolaou smear with manual screening 22 U/L 15-37 [facility] Thin prep Papanicolaou smear with manual screening 6 5-15 [facility] Thyroid Stim Hormone (TSH)on 10-02-2022 TSH 1.53 uIU/mL Normal 0.358-3.74 [facility] Comment on above: Performed By: #### L [id number], L500.4100, L100.0100, L500.4050, L506.1000, L503.0105 #### [facility] [address] [place], [address] Vitamin B12on 10-02-2022 Cobalamin (Vitamin B12) [Mass/Vol] 350 pg/mL Normal 211-911 [facility] Comment on above: Performed By: #### L [id number], L500.4100, L100.0100, L500.4050, L506.1000, L503.0105 #### [facility] [address] [place], [place], [id number] Vitamin D,25 Hydroxyon 10-02 Vitamin D 25-OH 46.8 ng/mL Normal [facility] Comment on above: Result Comment: Moriah min D 25(OH) Status Range Deficiency <20 ng/mL (50nmol/L) Insufficiency 20 - 30 ng/mL (50 - 75 nmol/L) Sufficiency 30 - 100 ng/mL (75 - 250 nmol/L) Toxicity >100 ng/mL (>250 nmol/L) Performed By: #### L [id number], L500.4100, L100.0100, L500.4050, L506.1000, L503.0105 #### [facility] [address] [place], [place], [id number] Absolute lymphocyte counton 08-22-2021 Lymphocytes Auto (Unsp spec) [#/Vol] 2.06 10*3/uL 0.83-4.51 [facility] Work Phone: Basophil percentageon 2021 Basophils/100 WBC (Bld) 0.5 % 0-1 [facility] Work Phone: Bilirubin [Mass/Vol] 0.30 mg/dL 0.20-1.00 [facility] Work Phone: Comment on above: For patients on eltr ombopag therapy, use of Dimension [place] TBIL is not recommended. Chloride [Moles/Vol] 105 mmol/L 98-107 [facility] Work Phone: Cholesterol [Mass/Vol] 138 mg/dL <200 [facility] Work Phone: Comment on above: <200 mg/dL Desirable 200-240 mg/dL Borderline >240 mg/dL High Risk Eosinophils/100 WBC (Bld) 1.5 % 0-5 [facility] Work Phone: Glucose [Mass/Vol] 96 mg/dL 74-106 [facility] Work Phone: Neutrophils (Bld) [#/Vol] 5.0 10*3/uL 2.0-7.7 [facility] Work Phone: Neutrophils/100 WBC (Bld) 64.7 % 47-70 [facility] Work Phone: Potassium [Moles/Vol] 3.6 mmol/L 3.5-5.1 [facility] Work Phone: Protein [Mass/Vol] 7.1 g/dL 6.4-8.2 [facility] Work Phone: Sodium [Moles/Vol] 137 mmol/L 136-145 [facility] Work Phone: Triglyceride [Mass/Vol] 137 mg/dL [facility] Work Phone: Comment on above: The drugs N-Acetylcy steine and Metamizole may falsely depress this assay.Serum Triglycerides Reference Interval Normal <150 mg/dL Borderline high 150 - 199 mg/dL High 200 - 499 mg/dL Very High > or = 500 mg/dL WBC (Bld) [#/Vol] 7.8 10*3/uL 4.4-11.0 [facility] Work Phone: Blood erythrocytes count (nu mber/volume)on 08-22-2021 RBC (Bld) [#/Vol] 4.29 10*6/uL 4.2-5.4 [facility] Work Phone: [phone] Blood hemoglobin measurement (mass/volume)on 08-22-2021 Hemoglobin (Bld) [Mass/Vol] 13.2 g/dL 12.0-15.0 [facility] Work Phone: Blood lymphocytes/100 leukoc yteson 08-22-2021 Lymphocytes/100 WBC (Bld) 26.5 % 19-41 [facility] Work Phone: Blood monocytes/100 leukocyt eson 08-22-2021 Monocytes/100 WBC (Bld) 6.7 % 0-10 [facility] Work Phone: Blood platelet mean volumeon 08-22-2021 Platelet mean volume (Bld) [Entitic vol] 9.1 fL 6.2-12.0 [facility] Work Phone: Determination of erythrocyte mean corpuscular volume (MCV)on 08-22-2021 MCV (RBC) [Entitic vol] 93.9 fL 81-99 [facility] Work Phone: Hematocrit Auto (Bld) [Volum e fraction]on 08-22-2021 Hematocrit (Bld) [Volume fraction] 40.3 % 37-47 [facility] Work Phone: Laboratory - Chemistry and C hemistry - challengeon 08-22-2021 ALP [Catalytic activity/Vol] 71 U/L 45-117 [facility] Work Phone: ALT [Catalytic activity/Vol] 19 U/L 13-56 [facility] Work Phone: CO2 [Moles/Vol] 27.0 mmol/L 21.0-32.0 [facility] Work Phone: Globulin (S) [Mass/Vol] 3.4 g/dL 2.2-4.2 [facility] Work Phone: Urea nitrogen/Creatinine [Mass ratio] 23.7 mg/mg 10-20 [facility] Work Phone: Laboratory - Hematology and Cell countson 08-22-2021 Erythrocyte distribution width (RBC) [Entitic vol] 40.2 fL 35.1-43.9 [facility] Work Phone: Erythrocyte distribution width (RBC) [Ratio] 11.7 % 11.6-14.6 [facility] Work Phone: Immature granulocytes/100 WBC (Bld) 0.100 % 0.0-0.9 [facility] Work Phone: Comment on above: IG% - Immature Granu locytes (promyelocytes, myelocytes and metamyelocytes) > 1% indicates that a LEFT SHIFT is Present. MCH (RBC) [Entitic mass] 30.8 pg 27.0-32.0 [facility] Work Phone: Nucleated RBC/100 WBC (Bld) [Ratio] 0 % 0-5 [facility] Work Phone: MCHC Auto (RBC) [Mass/Vol]on 08-22-2021 MCHC (RBC) [Mass/Vol] 32.8 g/dL 32-36 [facility] Work Phone: No Panel Informationon 08-22 Estimated GFR (MDRD) Amer 102 mL/min >60 [facility] Work Phone: Comment on above: GFR Calc Estimated GFR (MDRD) Non-Af Amer 84 mL/min >60 [facility] Work Phone: Comment on above: Non- GFR Calc Thyroid Stimulating Hormone (TSH) 0.90 uIU/mL 0.358-3.74 [facility] Work Phone: Platelets bldon 08-22-2021 Platelets (Bld) [#/Vol] 324 10*3/uL 150-450 [facility] Work Phone: Serum or plasma albumin symone urement (mass/volume)on 08-22-2021 Albumin [Mass/Vol] 3.7 g/dL 3.2-5.0 [facility] Work Phone: Serum or plasma albumin/glob ulin mass ratioon 08-22-2021 Albumin/Globulin [Mass ratio] 1.1 {ratio} 0.9-2.4 [facility] Work Phone: Serum or plasma calcium symone urement (mass/volume)on 08-22-2021 Calcium [Mass/Vol] 8.7 mg/dL 8.5-10.1 [facility] Work Phone: Serum or plasma cholesterol in HDL measurement (mass/volume)on 08-22-2021 Cholesterol in HDL [Mass/Vol] 55 mg/dL [facility] Work Phone: Comment on above: The drugs N-Acetylcy steine and Metamizole may falsely depress this assay. Reference Range HDL <40 mg/dL Low HDL Cholesterol HDL >or= 60 mg/dL High HDL Cholesterol Serum or plasma cholesterol in VLDL measurement (mass/volume)on 08-22-2021 Cholesterol in VLDL [Mass/Vol] 27 mg/dL 5-40 [facility] Work Phone: Serum or plasma creatinine m easurement (mass/volume)on 08-22-2021 Creatinine [Mass/Vol] 0.80 mg/dL 0.55-1.02 [facility] Work Phone: Comment on above: The validity of the calculated GFR & GFRAA in patients over 70 years has not been determined. Clinical correlation is essential. Serum or plasma low density lipoprotein (LDL) cholesterol measurement (mass/volume)on 08-22-2021 Cholesterol in LDL [Mass/Vol] 56 mg/dL 0-130 [facility] Work Phone: Serum or plasma urea nitroge n measurement (mass/volume)on 08-22-2021 Urea nitrogen [Mass/Vol] 19 mg/dL 7-18 [facility] Work Phone: Thin prep Papanicolaou smear with manual screeningon 08-22-2021 Thin prep Papanicolaou smear with manual screening 15 U/L 15-37 [facility] Work Phone: Thin prep Papanicolaou smear with manual screening 5 5-15 [facility] Work Phone: No Panel Informationon 05-08 Influenza Types A,B Direct FA (TORI) [facility] Work Phone: CORONAVIRUS PCR [CCL]on 05-06 COVID 19 Result [employer] Negative Normal [facility] Comment on above: Result Comment: Nega tive for COVID19 (SARS CoV2) by PCR. This test was developed and its performance characteristics determined by [facility]'s [facility] [place]. This test has been authorized by FDA under an Emergency Use Authorization (EUA). This test has been validated in accordance with the FDA's Guidance Document Policy for Diagnostics Testing in Laboratories Certified to Perform High Complexity Testing under CLIA prior to Emergency use Authorization for Coronavirus Disease 2019 during the Public Health Emergency issued on July 03, 2019. [facility] [address] [place] [address] Benny Anderson III, M.D. [id number] Performed By: #### [id number] #### [facility],[address] [place], [place] [id number] COVID 19 Source [employer] Nasopharyngeal Swab Normal [facility] Comment on above: Result Comment: Ginger ected on 05/27 AT 0124: Previously reported as [employer] SWAB Performed By: #### [id number] #### [facility],[address] [place], [place] [id number] Coronavirus 2019on 1 COVID 19 Result [employer] Normal Negative for COVID19 (SARS CoV2) by PCR. [facility] Comment on above: Result Comment: Nega tive for This test was developed and its performance characteristics determined by [facility]'s [facility] [place]. This test has been authorized by FDA under an Emergency Use Authorization (EUA). This test has been validated in accordance with the FDA's Guidance Document Policy for Diagnostics Testing in Laboratories Certified to Perform High Complexity Testing under CLIA prior to Emergency use Authorization for Coronavirus Disease 2019 during the Public Health Emergency issued on July 03, 2019. COVID19 (SARS This test was developed and its performance characteristics determined by [facility]'s [facility] [place]. This test has been authorized by FDA under an Emergency Use Authorization (EUA). This test has been validated in accordance with the FDA's Guidance Document Policy for Diagnostics Testing in Laboratories Certified to Perform High Complexity Testing under CLIA prior to Emergency use Authorization for Coronavirus Disease 2019 during the Public Health Emergency issued on July 03, 2019. CoV2) by PCR. This test was developed and its performance characteristics determined by [facility]'s [facility] [place]. This test has been authorized by FDA under an Emergency Use Authorization (EUA). This test has been validated in accordance with the FDA's Guidance Document Policy for Diagnostics Testing in Laboratories Certified to Perform High Complexity Testing under CLIA prior to Emergency use Authorization for Coronavirus Disease 2019 during the Public Health Emergency issued on July 03, 2019. COVID 19 Source [employer] Normal [facility] Comment on above: Result Comment: Naso pharyngeal Corrected on 05/27 AT 0124: Previously reported as [employer] SWAB Swab Corrected on 05/27 AT 0124: Previously reported as [employer] SWAB Vital Signs Date Time Vital Sign Value Performing Clinician Facility 12-10-2023 08:43-0400 Body mass index (BMI) [Ratio] 24.44 kg/m2 Ade Good MD Work Phone: [facility] 12-10-2023 08:43-0400 Body temperature 97.11 [degF] Ade Good MD Work Phone: [facility] 12-10-2023 08:43-0400 Body weight 67.13 kg Ade Good MD Work Phone: [facility] 12-10-2023 08:43-0400 Diastolic blood pressure 68 mm[Hg] Ade Good MD Work Phone: [facility] 12-10-2023 08:43-0400 Heart rate 67 /min Ade Good MD Work Phone: [facility] 12-10-2023 08:43-0400 Systolic blood pressure 112 mm[Hg] Ade Good MD Work Phone: [facility] 10-02-2022 09:15-0400 Body height 170.[address] Nba Campos Work Phone: [facility] 10-02-2022 09:15-0400 Body mass index (BMI) [Ratio] 24.4 kg/m2 Dr. Nba Campos Work Phone: [facility] 10-02-2022 09:15-0400 Body temperature 98.1 [degF] Dr. Nba Campos Work Phone: [facility] 10-02-2022 09:15-0400 Body weight 70.[address] Nba Campos Work Phone: [facility] 10-02-2022 09:15-0400 Diastolic blood pressure 62 mm[Hg] Dr. Nba Campos Work Phone: [facility] 10-02-2022 09:15-0400 Heart rate 81 /min Dr. Nba Campos Work Phone: [facility] 10-02-2022 09:15-0400 Respiratory rate 14 /min Dr. Nba Campos Work Phone: [facility] 10-02-2022 09:15-0400 SaO2% (BldA) [Mass fraction] 99 % Dr. Nba Campos Work Phone: [facility] 10-02-2022 09:15-0400 Systolic blood pressure 104 mm[Hg] Dr. Nba Campos Work Phone: [facility] 08-22-2021 14:54-0400 Body height 170.[address] Nba Campos Work Phone: [facility] Work Phone: 08-22-2021 14:54-0400 Body mass index (BMI) [Ratio] 21.4 kg/m2 Dr. Nba Campos Work Phone: [facility] Work Phone: 08-22-2021 14:54-0400 Body temperature 97.9 [degF] Dr. Nba Campos Work Phone: [facility] Work Phone: 08-22-2021 14:54-0400 Body weight 62.[address] Nba Campos Work Phone: [facility] Work Phone: 08-22-2021 14:54-0400 Diastolic blood pressure 68 mm[Hg] Dr. Nba Campos Work Phone: [facility] Work Phone: 08-22-2021 14:54-0400 Heart rate 81 /min Dr. Nba Campos Work Phone: [facility] Work Phone: 08-22-2021 14:54-0400 Respiratory rate 14 /min Dr. Nba Campos Work Phone: [facility] Work Phone: 08-22-2021 14:54-0400 SaO2% (BldA) [Mass fraction] 97 % Dr. Nba Campos Work Phone: [facility] Work Phone: 08-22-2021 14:54-0400 Systolic blood pressure 116 mm[Hg] Dr. Nba Campos Work Phone: [facility] Work Phone: Encounters Encounter Date Encounter Type Care Provider Facility Start: 12-29-2023 ambulatory ADE GOOD Facili ty:[facility] Start: 12-29-2023 End: 12-29-2023 Subsequent hospital visit by physician [facility] (1.5t) Radiology Comment on above: Arrived Start: 12-10-2023 End: 12-10-2023 ambulatory ADE GOOD Facility:[facility] Start: 12-10-2023 End: 12-10-2023 Patient encounter procedure Ade Good MD Work Phone: [facility] [place] Comment on above: Chronic right-sided low back pain without sciatica (Primary Dx); Lumbar facet arthropathy; Lumbar back pain Start: 10-14-2023 End: 10-14-2023 Patient encounter procedure Guillermina Hearn MD Work Phone: [facility] [place] Comment on above: Lumbar back pain (Pr imary Dx) Start: 10-14-2023 End: 10-14-2023 ambulatory GUILLERMINA HEARN Facility:[facility] Start: 10-14-2023 End: 10-14-2023 Subsequent hospital visit by physician [employer] [employer] [facility] Comment on above: Pain in right hip [M 25.551] Start: 09-04-2023 End: 09-04-2023 ambulatory Miguel Nova [facility] Work Phone: Start: 09-04-2023 End: 09-04-2023 Patient encounter procedure [facility], [place] Work Phone: Start: 11-16-2022 Encounter for genera l adult medical examination without abnormal findings Nba Campos [facility] Start: 10-11-2022 End: 10-11-[address] Nba Campos Work Phone: [facility] Work Phone: Start: 10-11-2022 End: 10-11-[address] Nba Campos Work Phone: [facility]-Outpatient Breast Imaging Start: 10-02-2022 End: 10-02-2022 ambulatory Miguel Rohini Facility:[facility] [place] [place] Start: 10-02-2022 End: 10-02-[address] Nba Campos Work Phone: [facility] Work Phone: Start: 10-02-2022 End: 10-02-2022 Encounter for general adult medical examination without abnormal findings Dr. Nba Campos Work Phone: [facility] Start: 10-02-2022 End: 10-02-[address] Nba Campos Work Phone: [facility] Start: 08-22-[address] Nba Campos Work Phone: [facility] Start: 08-22-2021 End: 08-22-2021 Encounter for general adult medical examination without abnormal findings Dr. Nba Campos Work Phone: [facility] Start: 08-22-2021 End: 08-22-[address] [facility] Campos [facility] Start: 05-08-2021 End: 05-08-[address] Nba Campos Work Phone: [facility] Start: 05-08-2021 End: 05-08-[address] N[facility] Campos [facility] Start: 05-25-2020 End: 05-25-2020 Patient encounter procedure JOLYNN BARNETT [facility] Procedures Date Procedure Procedure Detail Performing Clinician Start: 10-14-2023 Radex hip unilateral with pelvis 2-3 views Tyler Tellez AT Work Phone: Start: 09-04-2023 Radiography of thora cic spine Start: 09-04-2023 X-ray of lumbar spin e, two or three views Start: 10-11-2022 Screening mammography Ricky Campos Work Phone: Start: 05-08-2021 Influenza Types A,B Direct FA (TORI) Dr. Nba Campos Work Phone: Plan of Treatment Date Care Activity Detail Author Start: 01-04-2024 Covid-19 Vaccine ( season) Covid-19 Vaccine ( season) [facility] Start: 01-04-2024 Influenza vaccination C [facility] Start: 01-02-2024 End: 01-02-2024 Follow-up encounter 01/02/2024 2:20 PM EDT [facility] [place] [address] [place] [address] Ade Good MD [address] [place] [address] MRI follow up [facility] [place] Comment on above: MRI follow up Start: 12-29-2023 End: 12-29-2023 Patient encounter procedure 12/29/2023 6:40 PM EDT Appointment Radiology [address] [id number] Lumbar MRI Radiology Comment on above: Lumbar MRI Start: 05-05-2023 Behavioral Health Screening Behavioral Health Screening [facility] Start: 01-03-2023 Covid-19 Vaccine ( season) Covid-19 Vaccine () [facility] Start: 2021 Screening for malign ant neoplasm of breast Mammogram Screening [facility] Start: 2002 Screening for malign ant neoplasm of cervix Cervical Cancer Screening [facility] Start: 2000 Hepatitis B Vaccine (1 of 3 - 19+ 3-dose series) Hepatitis B Vaccine (1 of 3 - 19+ 3-dose series) [facility] Start: 2000 Urine microalbumin profile DTaP,Tdap,Td Vaccine (1 - Tdap) [facility] Start: 10-29-1999 Anxiety Screening Anxiety Screening [facility] Start: 10-29-1999 Depression Screening Depression Scre ening [facility] Start: 10-29-1999 Hepatitis C screening Hepatitis C Sc reening [facility] Start: 10-29-1999 HIV screening HIV Screening [facility] End: 01-08-2025 MR Lumbar spine WO contrast MRI LUMBAR SPINE WO IVCON Radiology Routine Lumbar back pain Chronic right-sided low back pain without sciatica Lumbar facet arthropathy 1 Occurrences starting 12/10/2023 until 01/08/2025 [facility] Work Phone: Comment on above: 1 Occurrences starti ng 12/10/2023 until 01/08/2025 Immunizations Immunization Date Immunization Notes Care Provider Fa cilisharron 02-11-2019 Flucelvax Quad [id number] (PF) (flu vac qs 2019(5 yr up)CD(PF)) 60 mcg ([address] Nba Campos Work Phone: [facility] Work Phone: 02-25-[address] Nba Campos Work Phone: [facility] 03-25-2007 influenza virus vaccine, unspecified formulation Guillermina Hearn MD Work Phone: [facility] Work Phone: Payers Date Payer Category Payer Self-pay [id number] 2022 Unknown [id number] 2019 Private Health Insurance [facility] UMR CHOICE PLUS [id number] 2019-Present [phone] [address] [address] [place] [address] HMO [id number] 2019 Unknown [id number] 2013 Unknown [id number] 1981 Unknown [id number] Unknown [id number] Unknown [id number] Unknown [id number] Unknown [id number] Social History Date Type Detail Facility Start: 08-22-2021 End: 10-02-2022 Tobacco smoking status ILIS Unknown if ever smoked [facility] Start: 1980 Sex Assigned At Female [facility] Start: 02-25-2013 Tobacco smoking stat us ILIS Never smoked tobacco [facility] Work Phone: Start: 02-25-2013 Tobacco use and exposure Smokeless tobacco non-user [facility] Start: 10-14-2023 End: 12-10-2023 Alcohol intake Not Asked [facility] Start: 10-13-2023 End: 10-14-2023 History of Social function [facility] Start: 10-13-2023 End: 10-14-2023 Tobacco use panel [facility] Adult Depression Screening Assessment 0 [facility] Start: 1980 Sex Assigned At Not on file [facility] Clinical Notes 05-08-2021 to 12-29-2023 Charity Jimenez RT(R) - 12/29/2023 6:40 PM EDTPatient Ade Sifuentes MD - 12/10/2023 9:00 AM Guillermina Ca MD - 10/14/2023 10:00 AM EDT Note Date & Type Note Facility 12-29-2023 History of Presen t illness Narrative RADIOLOGY SERVICE PROGRESS NOTE DATE OF SERVICE: December 29, 2023 TIME OF SERVICE: 644pm EVENT: EXAM/PROCEDURE NOT COMPLETED - Patient has contraindication: Implant unknown coils placed 2006. ADDITIONAL EVENT DETAILS: Patient does not know where the coils were placed, and coils were confirmed on hip xray. After speaking to Dr Anderson it was decided that the study could not be completed until further information was provided and mri safety could be confirmed. Patient understands situation and will attempt to find coil information so study can be performed at a later date. -Study to be rescheduled at Dr Jennyfer bowie. SIGNATURE: LOYD Bell) PATIENT NAME: Kelechi Smith DATE: December 29, 2023 TIME: 6:44 PM PAGER/CONTACT #: documented in this encounter [facility] 12-29-2023 Note HNO ID: [id number] Author: CHARITY JIMENEZ RT(R) Service: Radiology Author Type: Technologist Type: Progress Notes Filed: 12/29/2023 18:49 Note Text: RADIOLOGY SERVICE PROGRESS NOTE DATE OF SERVICE: December 29, 2023 TIME OF SERVICE: 644pm EVENT: EXAM/PROCEDURE NOT COMPLETED - Patient has contraindication: Implant unknown coils placed 2006. ADDITIONAL EVENT DETAILS: Patient does not know where the coils were placed, and coils were confirmed on hip xray. After speaking to Dr Anderson it was decided that the study could not be completed until further information was provided and mri safety could be confirmed. Patient understands situation and will attempt to find coil information so study can be performed at a later date. -Study to be rescheduled at Dr Jennyfer bowie. SIGNATURE: RT Ray(R) PATIENT NAME: Kelechi Smith DATE: December 29, 2023 TIME: 6:44 PM PAGER/CONTACT #: [facility] 12-10-2023 Ade Desai MD - 12/10/2023 9:15 AM EDT Images from the original note were not included. Chronic Low Back Pain Overview: Eighty to 90 percent of people in the [place] will experience an episode of back pain at some time during their lives. Chronic back pain refers to an episode of pain that lasts longer than 12 weeks. Many times, a specific structural explanation for the pain is not found but medical treatment can successfully improve symptoms and allow return to normal activities. In the absence of major structural deformity, surgery is unlikely to be helpful in relieving back pain. Treatment: Back pain is almost always best treated with conservative (non-surgical) measures. Prolonged bed rest is not recommended and generally should not exceed 24-48 hours. Gradually resuming normal activities as soon as you are able is best. Your physician may recommend physical therapy to customize an active exercise program which will speed your recovery. Over the counter, non-prescription pain relievers such as acetaminophen (Tylenol) and ibuprofen may be used in your treatment of pain. Your physician may prescribe a non-steroidal anti-inflammatory drug (NSAID) to use as an alternative. Other medications, particularly antidepressants (cymbalta or effexor), may be prescribed for pain relief even in the absence of depression. Yoga, acupuncture, and massage are helpful in some persons with chronic back pain. Opioid or narcotic medications are not recommended, and you should refrain from the use of such medications. In fact, use of these drugs may prolong the amount of time it takes for you to recover. Spinal epidural injections (blocks) are not recommended for treatment of back pain. Injection of spinal joints (facets) is rarely recommended for treatment of spinal arthritis pain. Follow Up See your health care provider if: You experience fever The pain progressively worsens The pain progressively moves from your back into your leg(s) You notice progressive weakness in your legs You experience problems in your balance or walking You notice difficulty controlling your bowels or bladder These are warning signs or red flags that require prompt, urgent medical attention. For more information on low back pain, visit our website at [email or web address] and search lower back pain. SIGNATURE: Ade Good MD PATIENT NAME: Kelechi Smith DATE: December 10, 2023 TIME: 9:27 AM documented in this encounter [facility] 12-10-2023 Note HNO ID: [id number] Author: ADE GOOD MD Service: ? 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 Guillermina Hearn for an opinion regarding right lumbar pain, not hip issue. My final recommendations will be communicated back to the requesting physician by way of shared medical record or letter via [place] mail. Her PT thought she may have a torn labrum, thus she saw Dr Hearn--clinically not hip issue, referred to spine Other Issues Addressed at the Visit Today: right back/hip pain is limiting her weight training Precipitating Event: none--started in Jan, started after trip to [place] PAIN EVALUATION 12/09/2023 1944 12/10/2023 0840 Pain Level: 4 -- 3-08/12 Pain Location: Back-Lower -- low back to R hip Description: Sore;Stiffness;Tightness Tightness;Stiffness Duration Amount of Time: 11 11 Duration Units: Months Months Frequency: Continuous Continuous Intervention/Comfort measure: Medication;Reposition;Heat;Mass age;Pillow support;Positioning Medication;Exercise Comments: -- dry needling, cupping Pain Radiation: Pain does not radiate, tight ball Aggravating Factors: sit/stand transfers, dry needling, in/out of bed Alleviating Factors: None Pain Ratio: N/A Prior Therapy: PT [facility] in [place] Dry needling and cupping Medications including prednisone (no change) Heat and ice OTC medications lidocaine Litigation: No Workers' Compensation: No YELLOW AND BLUE FLAGS No-Neg Attitude; Back Pain is Disabling YES-Avoiding Activity (for Fear of Pain) No-Depression or Anxiety Disorders No-Social Problems No-Substance Use Disorder No-Job Dissatisfaction No-Financial Disincentives Not working out Patient Entered Questionnaires 12/09/2023 Spine Questions Pain Location: Lower back Pain Duration: 6 months - 1 year Pain over last 6 months: Every day or nearly every day in the past 6 months Symptoms from neck/cervical spine: Yes Employment Status: Working now Involved in law suit/legal claim: No 12/09/2023 Spine Red Flags Any type of cancer: No Unexplained fever: No Bowel or bladder dysfunction: No Unintentional weight loss: No Osteoporosis: No 12/09/2023 Neck Questionnaires Benzel Modified CLAUDE Score 18 (No Myelopathy Symptoms) PROMIS Score Percentiles 10/13/2023 12/09/2023 Physical Health Physical Function Percentile 34 21* Sleep Percentile 38 Fatigue Percentile 46 Pain Interference Percentile 42 12/09/2023 PROMIS SOCIAL ROLE SCORE Social Role Satisfaction Percentile 58 10/13/2023 PROMIS Global Health Scale Physical Health Percentile 31 Mental Health Percentile 53 Percentiles provide an indication of how the patient's score ranks in relation to the general population. Higher percentile rankings indicate better function/quality of life. 50th percentile is the average of the general population and indicates half of respondents had a worse score. Depression Screenin12/09/2023 PHQ-9 Score 3 12/09/2023 PHQ-9 Self-harm Question Question 9 Not at all PHQ-9 Self-Harm (Item 9) response options: 0 Not at all 1 Several days 2 More than half the days 3 Nearly every day PHQ-9 Levels: 0-4 No - mild depression 5-9 Mild depression 10-14 Moderate depression 15-19 Moderately severe depression 20-27 Severe depression There is no problem list on file for this patient. PAST MEDICAL HISTORY No date: Anxiety state PAST SURGICAL HISTORY 04/2007: EMBOLIZATION COILS Social History Tobacco Use Smoking status: Never Smokeless tobacco: Never FAMILY HISTORY Problem Relation Age of Onset Hypothyroidism Mother Back Pain Father Back Pain Sister Back Pain Brother ALLERGIES No Known Allergies CURRENT MEDICATIONS: escitalopram oxalate (LEXAPRO) 20 mg tablet Take 1 tablet by mouth every afternoon. spironolactone (ALDACTONE) 100 mg tablet Take 1 tablet by mouth every afternoon. REVIEW OF SYSTEMS: Other than listed in HPI or PMHX below the patient denies any complaint of the following: myalgias, diagnosis of cancer, significant spinal trauma, cough, fever, weight loss, dizziness, fainting, orthostasis, vision or language changes. No shortness of breath, chest pain, nausea, vomiting or diarrhea. Reviewed and verified medical referral coordinator/nurse's progress notes. No revisions. OBJECTIVE: PHYSICAL EXAM BP 112/68 (BP Site: Right Arm, BP Position: Sitting, BP Cuff Size: Regular Adult) Pulse 67 Temp 36.2 ?C (97.1 ?F) (Temporal) Wt 67.1 kg (148 lb) BMI 24.44 kg/m? Patient's was present during the history and physical examination. GENERAL APPEARANCE: alert and in no apparent distress SKIN: no rash (more content not included)... [facility] 12-10-2023 History of Presen t illness Narrative Images from the original note were not included. 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 Guillermina Hearn for an opinion regarding right lumbar pain, not hip issue. My final recommendations will be communicated back to the requesting physician by way of shared medical record or letter via [place] mail. Her PT thought she may have a torn labrum, thus she saw Dr Hearn--clinically not hip issue, referred to spine Other Issues Addressed at the Visit Today: right back/hip pain is limiting her weight training Precipitating Event: none--started in Jan, started after trip to [place] PAIN EVALUATION 12/09/2023194312/10/2023 0840 Pain Level: 4 -- 3-08/12 Pain Location: Back-Lower -- low back to R hip Description: Sore;Stiffness;Tightness Tightness;Stiffness Duration Amount of Time: 11 11 Duration Units: Months Months Frequency: Continuous Continuous Intervention/Comfort measure: Medication;Reposition;Heat;Mass age;Pillow support;Positioning Medication;Exercise Comments: -- dry needling, cupping Pain Radiation: Pain does not radiate, tight ball Aggravating Factors: sit/stand transfers, dry needling, in/out of bed Alleviating Factors: None Pain Ratio: N/A Prior Therapy: PT [facility] in [place] Dry needling and cupping Medications including prednisone (no change) Heat and ice OTC medications lidocaine Litigation: No Workers' Compensation: No YELLOW & BLUE FLAGS No-Neg Attitude; Back Pain is Disabling YES-Avoiding Activity (for Fear of Pain) No-Depression or Anxiety Disorders No-Social Problems No-Substance Use Disorder No-Job Dissatisfaction No-Financial Disincentives Not working out Patient Entered Questionnaires 12/09/2023 Spine Questions Pain Location: Lower back Pain Duration: 6 months - 1 year Pain over last 6 months: Every day or nearly every day in the past 6 months Symptoms from neck/cervical spine: Yes Employment Status: Working now Involved in law suit/legal claim: No 12/09/2023 Spine Red Flags Any type of cancer: No Unexplained fever: No Bowel or bladder dysfunction: No Unintentional weight loss: No Osteoporosis: No 12/09/2023 Neck Questionnaires Benzel Modified CLAUDE Score 18 (No Myelopathy Symptoms) PROMIS Score Percentiles 10/13/2023 12/09/2023 Physical Health Physical Function Percentile 34 21* Sleep Percentile 38 Fatigue Percentile 46 Pain Interference Percentile 42 12/09/2023 PROMIS SOCIAL ROLE SCORE Social Role Satisfaction Percentile 58 10/13/2023 PROMIS Global Health Scale Physical Health Percentile 31 Mental Health Percentile 53 Percentiles provide an indication of how the patient's score ranks in relation to the general population. Higher percentile rankings indicate better function/quality of life. 50th percentile is the average of the general population and indicates half of respondents had a worse score. Depression Screenin12/09/2023 PHQ-9 Score 3 12/09/2023 PHQ-9 Self-harm Question Question 9 Not at all PHQ-9 Self-Harm (Item 9) response options: 0 Not at all 1 Several days 2 More than half the days 3 Nearly every day PHQ-9 Levels: 0-4 No - mild depression 5-9 Mild depression 10-14 Moderate depression 15-19 Moderately severe depression 20-27 Severe depression There is no problem list on file for this patient. PAST MEDICAL HISTORY No date: Anxiety state PAST SURGICAL HISTORY 04/2007: EMBOLIZATION COILS Social History Tobacco Use Smoking status: Never Smokeless tobacco: Never FAMILY HISTORY Problem Relation Age of Onset Hypothyroidism Mother Back Pain Father Back Pain Sister Back Pain Brother ALLERGIES No Known Allergies CURRENT MEDICATIONS: escitalopram oxalate (LEXAPRO) 20 mg tablet Take 1 tablet by mouth every afternoon. spironolactone (ALDACTONE) 100 mg tablet Take 1 tablet by mouth every afternoon. REVIEW OF SYSTEMS: Other than listed in HPI or PMHX below the patient denies any complaint of the following: myalgias, diagnosis of cancer, significant spinal trauma, cough, fever, weight loss, dizziness, fainting, orthostasis, vision or language changes. No shortness of breath, chest pain, nausea, vomiting or diarrhea. Reviewed and verified medical referral coordinator/nurse's progress notes. No revisions. OBJECTIVE: PHYSICAL EXAM BP 112/68 (BP Site: Right Arm, BP Position: Sitting, BP Cuff Size: Regular Adult) Pulse 67 Temp 36.2 C (97.1 F) (Temporal) Wt 67.1 kg (148 lb) BMI 24.44 kg/m Patient's was present during the history and physical examination. GENERAL APPEARANCE: alert and in no apparent distress SKIN: no rash on back HEART: Peripheral pulses: normal, 2+ bilaterally and symmetric LUNGS: even and non-labored breathing, normal chest excursion NEURO/PSYCH: speech normal, Mood: Calm GAIT: normal, toe walking normal, heel walking normal, able to tandem gait POSTURE: Posture and spinal curves are normal PALPATION: no point tenderness over the spine, nor SI region, pain more in sacral area and top of pelvis; nontender GTB MUSCULOSKELETAL: Extended Low Back & Leg Exam Lumbar Range of Motion Flexion WNL Extension Normal RIGHT LEFT Oblique Extension Decreased, pain Within Normal Limits Leg Raise Straight Leg Raise Negative Negative Contralateral Straight Leg Raise Negative Negative DTRs Knee Hypo-reflexive Hypo-reflexive Ankle Absent Absent Medial Hamstring Absent Absent Babinski normal normal Strength of Lower Extremities Extensor Hallux Longus 5/5 5/5 Ankle Dorsiflexion 5/5 5/5 Ankle Plantarflexion 5/5 5/5 Knee Extension 5/5 5/5 Geeta's Exam: Superficial non-anatomic tenderness: No Overreaction: No Pain on simulated maneuvers: No Straight Leg Raise test discrepancy: No Give-way weakness: No Non-dermatomal sensory loss: No Hip Range of Motion RIGHT LEFT Flexion Normal Normal Internal Rotation Mildly Restricted Normal External Rotation Normal Normal Hip Exam RIGHT LEFT BAY Exam Normal Normal Trochanteric Bursa Tenderness Normal Normal Gaenslen's Maneuver Abnormal Normal Donald's Finger: No Gaenslen's Test: Yes BAY:No Pelvic Compression:No Sacral Thrust:No NEUROSENSORY: Soft touch; Within Normal Limits DIAGNOSTIC DATA: [facility] records independently reviewed Images independently reviewed with the patient X-rays hip Last XR Hip/Pelvis - Impression Only XR HIP GENERAL 3V PELV/AP/LAT RIGHT Exam End: 10/14/2023 9:46 AM (Final result) Impression: IMPRESSION: No acute radiographic abnormality or significant degenerative change of the right hip. Small calcification adjacent to the right greater trochanter may represent calcific gluteal tendinosis. ... Outside lumbar and thoracic spine films: September 04, 2023--no Fx or spondylolisthesis, mild facet arthritis, coils in veins in pelvis region ASSESSMENT/PLAN Encounter Diagnosis ICD-10-CM 1. Chronic right-sided low back pain without sciatica M54.50 MRI LUMBAR SPINE WO IVCON G89.29 2. Lumbar facet arthropathy M47.816 MRI LUMBAR SPINE WO IVCON 3. Lumbar back pain M54.50 MRI LUMBAR SPINE WO IVCON PLAN: 1) Imaging Studies: she requires additional work up Imaging Ordered: Lumbar MRI For possible Lumbar HNP/facet arthropathy due to presence of red flags detailed in HPI, interventional planning, and Failure of conservative treatments listed in HPI/Conservative Treatment Section (NSAIDs, PT, HEP and/or Shingle Inspector within last 3-6 months) . 2) Therapy/Rehabilitation: continue HEP, may need addl PT after MRI 3) Pharmacological Management: no changes 4) Spine/Surgical Interventions: pending MRI, discussed spine intervention 5) Consultations: pending MRI 6) Follow -up: after MRI 7) Future treatment considerations: spine intervention, spine PT, acupuncture Medical Decision Making: Problems: Low: Stable chronic illness Data: Unique source(s) for external note(s) reviewed: 1 Unique test result(s) reviewed: 2 Unique test(s) ordered: 1 Independent interpretation of test from other physician/QHCP Risk: Low: Low risk from testing/treatment Medical Decision Making Level: 3 - Low Cc: Miguel Nova CNP SIGNATURE: Ade Good MD PATIENT NAME: Kelechi Smith DATE: December 10, 2023 TIME: 9:00 AM documented in this encounter [facility] 10-14-2023 Note HNO ID: [id number] Author: GUILLERMINA HEARN MD Service: ? Author Type: Physician Type: Progress Notes Filed: 10/14/2023 10:13 Note Text: DEPARTMENT OF ORTHOPAEDICS Consultation as a request of self. Chief Complaint: Right hip pain HISTORY OF PRESENT ILLNESS: This is a pleasant 42 year old female, who presents today with a chief complaint of right hip pain/low back pain Injury/ Trauma: Denies PAIN EVALUATION [id number] Pain Level: 3 Pain Location: Back Description: Aching;Burning;Radiating;Sharp; Sore;Spasm;Stiffness;Tightness Duration Units: Months Frequency: Continuous Intervention/Comfort measure: Medication;Reposition;Relaxatio n;Heat;Massage Pain location: posterior Duration of pain/ symptoms: 9 months Frequency: intermittent Intensity: moderate Quality: dull and burning She Reports nocturnal pain. She denies numbness, tingling, or electric shocks. She denies popping, clicking, catching, locking, grinding, instability, buckling, or giving way. Aggravating factors: ADL's, pivoting, prolonged sitting, and prolonged standing Alleviating factors: Unknown Prior Treatments: massage/PT Work Related: No Occupation: Activity level: recreational, sport/activity: No past medical history on file. No past surgical history on file. Current Outpatient Medications Medication Sig Dispense Refill escitalopram oxalate (LEXAPRO) 20 mg tablet Take 1 tablet by mouth every afternoon. spironolactone (ALDACTONE) 100 mg tablet Take 1 tablet by mouth every afternoon. Promethazine-DM (PHENERGAN-DM) 6.25-15 mg/5 mL syrup Take 5 mL by mouth four times daily as needed. 120 mL 0 rizatriptan (MAXALT) 10 mg tablet Take one at onset of headache. May repeat in 2 hours as needed. Max 30 mg/24 hours. 12 tablet 1 NORGESTIMATE-ETHINYL ESTRADIOL (TRI-SPRINTEC, 28, ORAL) Take by mouth once daily. No current facility-administered medications for this visit. ALLERGIES No Known Allergies No family history on file. Social History Tobacco Use Smoking status: Never Smokeless tobacco: Never REVIEW OF SYSTEMS: GENERAL: No weight loss, malaise or fevers HEENT: Negative for frequent or significant headaches, No changes in hearing or vision, no nose bleeds or other nasal problems NECK: Negative for lumps, goiter, pain and significant neck swelling RESPIRATORY: Negative for cough, hemoptysis, wheezing, COPD, dyspnea or shortness of breath CARDIOVASCULAR: Negative for chest pain, leg swelling, hypertension, CHF or palpitations GI: No nausea, vomiting, or diarrhea : No history of dysuria, frequency or incontinence MUSCULOSKELETAL: Negative for joint pain or swelling, back pain or muscle pain SKIN: Negative for lesions, rash, and itching HEMATOLOGY/LYMPHOLOGY: Negative for prolonged bleeding, bruising easily or swollen nodes ENDOCRINE: Negative for cold or heat intolerance, polyuria, polydipsia and goiter RADIOGRAPHS: right AP pelvis, Nina lateral and false view dated today revealed no acute processes, fractures, or dislocations. Osseous and soft tissue structures within normal limits. Tonnis grade 0. X-Rays Reviewed and discussed. OTHER STUDIES: Not applicable PHYSICAL EXAM: There were no vitals taken for this visit. General: Appears stated age, well built, in no apparent distress. Psychiatric: Mood and affect appropriate. Alert and oriented x 3 without evidence of abnormal respiratory effort. Musculoskeletal Exam: Gait normal, Posture: erect and normal. Exam: Right Left Single Leg Trendelenburg Negative Negative Hip flexion 110 110 IR 10 20 ER 60 60 Anterior impingement negative negative Dynamic labral stress negative negative BAY negative negative Posterior Impingement negative negative EDWARDO negative negative Strength Right Left Supine HF 5/5 5/5 Upright HF 5/5 5/5 Adduction 5/5 5/5 Abduction 5/5 5/5 Tenderness with Palpation: Right Left Greater Troch Positive Positive Gluteus Medius Negative Negative Piriformis Negative Negative She has pain with side bending to the left, full extension/flexion PROCEDURE: IMPRESSION: 1. right lumbar back pain, no pain on hip exam. PLAN: 1. Medication: Continue current medications. 2. Test(s)/Imaging/Referral(s): spine referral. 3. Intervention: Continue conservative treatment. 4. Follow-up: Two months . Guillermina Hearn MD Sports Medicine/Orthopaedic Surgery [facility] 10-14-2023 History of Presen t illness Narrative Images from the original note were not included. DEPARTMENT OF ORTHOPAEDICS Consultation as a request of self. Chief Complaint: Right hip pain HISTORY OF PRESENT ILLNESS: This is a pleasant 42 year old female, who presents today with a chief complaint of right hip pain/low back pain Injury/ Trauma: Denies PAIN EVALUATION 10/13/20232112 Pain Level: 3 Pain Location: Back Description: Aching;Burning;Radiating;Sharp; Sore;Spasm;Stiffness;Tightness Duration Units: Months Frequency: Continuous Intervention/Comfort measure: Medication;Reposition;Relaxatio n;Heat;Massage Pain location: posterior Duration of pain/ symptoms: 9 months Frequency: intermittent Intensity: moderate Quality: dull and burning She Reports nocturnal pain. She denies numbness, tingling, or electric shocks. She denies popping, clicking, catching, locking, grinding, instability, buckling, or giving way. Aggravating factors: ADL's, pivoting, prolonged sitting, and prolonged standing Alleviating factors: Unknown Prior Treatments: massage/PT Work Related: No Occupation: Activity level: recreational, sport/activity: No past medical history on file. No past surgical history on file. Current Outpatient Medications Medication Sig Dispense Refill escitalopram oxalate (LEXAPRO) 20 mg tablet Take 1 tablet by mouth every afternoon. spironolactone (ALDACTONE) 100 mg tablet Take 1 tablet by mouth every afternoon. Promethazine-DM (PHENERGAN-DM) 6.25-15 mg/5 mL syrup Take 5 mL by mouth four times daily as needed. 120 mL 0 rizatriptan (MAXALT) 10 mg tablet Take one at onset of headache. May repeat in 2 hours as needed. Max 30 mg/24 hours. 12 tablet 1 NORGESTIMATE-ETHINYL ESTRADIOL (TRI-SPRINTEC, 28, ORAL) Take by mouth once daily. No current facility-administered medications for this visit. ALLERGIES No Known Allergies No family history on file. Social History Tobacco Use Smoking status: Never Smokeless tobacco: Never REVIEW OF SYSTEMS: GENERAL: No weight loss, malaise or fevers HEENT: Negative for frequent or significant headaches, No changes in hearing or vision, no nose bleeds or other nasal problems NECK: Negative for lumps, goiter, pain and significant neck swelling RESPIRATORY: Negative for cough, hemoptysis, wheezing, COPD, dyspnea or shortness of breath CARDIOVASCULAR: Negative for chest pain, leg swelling, hypertension, CHF or palpitations GI: No nausea, vomiting, or diarrhea : No history of dysuria, frequency or incontinence MUSCULOSKELETAL: Negative for joint pain or swelling, back pain or muscle pain SKIN: Negative for lesions, rash, and itching HEMATOLOGY/LYMPHOLOGY: Negative for prolonged bleeding, bruising easily or swollen nodes ENDOCRINE: Negative for cold or heat intolerance, polyuria, polydipsia and goiter RADIOGRAPHS: right AP pelvis, Nina lateral and false view dated today revealed no acute processes, fractures, or dislocations. Osseous and soft tissue structures within normal limits. Tonnis grade 0. X-Rays Reviewed and discussed. OTHER STUDIES: Not applicable PHYSICAL EXAM: There were no vitals taken for this visit. General: Appears stated age, well built, in no apparent distress. Psychiatric: Mood and affect appropriate. Alert and oriented x 3 without evidence of abnormal respiratory effort. Musculoskeletal Exam: Gait normal, Posture: erect and normal. Exam: Right Left Single Leg Trendelenburg Negative Negative Hip flexion 110 110 IR 10 20 ER 60 60 Anterior impingement negative negative Dynamic labral stress negative negative BAY negative negative Posterior Impingement negative negative EDWARDO negative negative Strength Right Left Supine HF 5/5 5/5 Upright HF 5/5 5/5 Adduction 5/5 5/5 Abduction 5/5 5/5 Tenderness with Palpation: Right Left Greater Troch Positive Positive Gluteus Medius Negative Negative Piriformis Negative Negative She has pain with side bending to the left, full extension/flexion PROCEDURE: IMPRESSION: 1. right lumbar back pain, no pain on hip exam. PLAN: 1. Medication: Continue current medications. 2. Test(s)/Imaging/Referral(s): spine referral. 3. Intervention: Continue conservative treatment. 4. Follow-up: Two months . Guillermina Hearn MD Sports Medicine/Orthopaedic Surgery documented in this encounter [facility] 10-14-2023 History of Presen t illness Narrative Radiology Service Progress Note PATIENT NAME: Kelechi Smith DATE OF SERVICE: October 14, 2023 TIME: 9:47 AM PATIENT IDENTITY VERIFICATION COMPLETED USING TWO (2) IDENTIFIERS: Name and Date of confirmed by patient verbally. FALL SCREENING: Has the patient had 2 falls in the last year or 1 fall with injury or currently using an Ambulatory Assistive Device (Walker, Cane, Wheelchair, Crutches, etc.)? No PATIENT GENDER DATA: Female. status: : No status: NO. PATIENT RELEVANT IMPLANT DATA REVIEWED: Not Applicable PATIENT PRESENTS WITH AN IMPLANTABLE OR ATTACHED STONE POLISHER: No RADIOLOGY DEPARTMENT: General X-ray: Exam(s) Completed: Pelvis X-Ray: Pelvis with Hip Right PERIPHERAL IV DATA: Not applicable SIGNED BY: RT Ines(Aby) October 14, 2023 9:47 AM documented in this encounter [facility] 10-14-2023 Note HNO ID: [id number] Author: SHARON COLON RT(R) Service: Radiology Author Type: Technologist Type: Progress Notes Filed: 10/14/2023 09:47 Note Text: Radiology Service Progress Note PATIENT NAME: Kelechi Smith DATE OF SERVICE: October 14, 2023 TIME: 9:47 AM PATIENT IDENTITY VERIFICATION COMPLETED USING TWO (2) IDENTIFIERS: Name and Date of confirmed by patient verbally. FALL SCREENING: Has the patient had 2 falls in the last year or 1 fall with injury or currently using an Ambulatory Assistive Device (Walker, Cane, Wheelchair, Crutches, etc.)? No PATIENT GENDER DATA: Female. status: : No status: NO. PATIENT RELEVANT IMPLANT DATA REVIEWED: Not Applicable PATIENT PRESENTS WITH AN IMPLANTABLE OR ATTACHED STONE POLISHER: No RADIOLOGY DEPARTMENT: General X-ray: Exam(s) Completed: Pelvis X-Ray: Pelvis with Hip Right PERIPHERAL IV DATA: Not applicable SIGNED BY: RT Ines(R) October 14, 2023 9:47 AM [facility] 05-08-2021 SARS-CoV RNA JUDITH+ probe Ql (Unsp spec) [facility] Work Phone: Coronavirus 2019 (JUDITH) May 08, 2021 12:54pm Detected Not Detected Patients who have a positive COVID-19 test result may nowhave treatment options. Treatment options are available forpatients with mild to moderate symptoms and forhospitalized patients. Visit our website [email or web address] for resources andinformation.This nucleic acid amplification test was developed and itsperformance characteristics determined by [email or web address]. Nucleic acid amplification tests include RT-PCR and TMA. This test has not been FDA cleared orapproved. This test has been authorized by FDA under anEmergency Use Authorization (EUA). This test is onlyauthorized for the duration of time the declaration thatcircumstances exist justifying the authorization of theemergency use of in vitro diagnostic tests for detection [id number] virus and/or diagnosis of COVID-19 infectionunder section 564(b)(1) of the Act, 21 U.S.C. 360bbb-3(b)(1), unless the authorization is terminated or revokedsooner.When diagnostic testing is negative, the possibility of afalse negative result should be considered in the contextof a patient's recent exposures and the presence ofclinical signs and symptoms consistent with COVID-19. Anindividual without symptoms of COVID-19 and who is notshedding SARS-CoV-2 virus would expect to have a negative(not detected) result in this assay. Comment on above: Patients who have a positive COVID-19 test result may nowhave treatment options. Treatment options are available forpatients with mild to moderate symptoms and forhospitalized patients. Visit our website [email or web address] for resources andinformation.This nucleic acid amplification test was developed and itsperformance characteristics determined by [email or web address]. Nucleic acid amplification tests include RT-PCR and TMA. This test has not been FDA cleared orapproved. This test has been authorized by FDA under anEmergency Use Authorization (EUA). This test is onlyauthorized for the duration of time the declaration thatcircumstances exist justifying the authorization of theemergency use of in vitro diagnostic tests for detection [id number] virus and/or diagnosis of COVID-19 infectionunder section 564(b)(1) of the Act, 21 U.S.C. 360bbb-3(b)(1), unless the authorization is terminated or revokedsooner.When diagnostic testing is negative, the possibility of afalse negative result should be considered in the contextof a patient's recent exposures and the presence ofclinical signs and symptoms consistent with COVID-19. Anindividual without symptoms of COVID-19 and who is notshedding SARS-CoV-2 virus would expect to have a negative(not detected) result in this assay. Evaluation note Diagnosis Onset Date Encounter for preventative a dult health care examination acute [facility] Work Phone: Evaluation noteNo assessment information available [facility] Work Phone: Evaluation note* Diagnosis Onset Date Resolution Status Encounter for preventative adult health care examinati on acute Vitamin deficiency acute [facility] Work Phone: Evaluation note* Diagnosis Lumbar back pain- Primary Lumbago [facility] Diagnosis Chronic right-sided low back pain without sciatica- Primary Lumbar facet arthropathy Lumbosacral spondylosis without myelopathy Lumbar back pain Lumbago [facility] Diagnosis Lumbar back pain Lumbago Chronic right-sided low back pain without sciatica Lumbar facet arthropathy Lumbosacral spondylosis without myelopathy [facility] Diagnosis Pain in right hip Pain in joint, pelvic region and thigh documented in this encounter [facility] for referral (narrative)* Diagnostic Procedure Only (Routine) - Closed Specialty Diagnoses / Procedures Referred By Oz t Referred To Contact XR IMAGING Diagnoses Pain in right hip Procedures XR HIP GENERAL 3V PELV/AP/LAT RIGHT RADEX HIP UNILATERAL WITH PELVIS 2-3 VIEWS Elizabeth Bird, [address] [place] [address] [place] [address] Referral ID Status Reason Start Date Expiration Date V isits Requested Visits Authorized [id number] Closed Auto-Generate d Referral 10/09/2023 11/07/2024 1 1 [facility] Summary Purpose Family History Relationship Condition Age at Onset Recorded Date/T ila grandmother Malignant neoplasm of breast Unknown grandfather Malignant neoplasm Unknown Malignant neoplasm of skin Unknown mother Disorder of thyroid Unknown aunt Disorder of thyroid Unknown Advance Directives No Advanced Directives Records FoundNo Advanced Directives Records FoundNo Advanced Directives Records FoundNo Advanced Directives Records FoundNo Advanced Directives Records Found Chief Complaint and Reason for Visit Chief Complaint COVID TEST 1 Y FU Reason for Visit Encounter for preven tative adult health care examination Chief Complaint Routine SCREENING Reason for Visit Encounter for preven tative adult health care examination Vitamin deficiency Chief Complaint BACK PAIN Reason for Referral Specialty Diagnoses / Procedures Referred By Oz t Referred To Contact [facility] [place] Diagnoses Lumbar back pain Procedures CONSULT [facility] OFFICE/OUTPATIENT [facility] 60 MINUTES Guillermina Hearn MD [address] [place] [address] Referral ID Status Reason Start Date Expiration Date Visits Requested Visits Authorized [id number] Authorized PCP Requested Referral 10/14/2023 10/13/2024 1 1 Specialty Diagnoses / Procedures Referred By Oz ramos Referred To Contact MR IMAGING Diagnoses Lumbar back pain Chronic right-sided low back pain without sciatica Lumbar facet arthropathy Procedures MRI LUMBAR SPINE WO IVCON MRI SPINAL CANAL LUMBAR W/O CONTRAST MATERIAL Ade Good MD [address] [place] [address] [facility] [place] [address] Referral ID Status Reason Start Date Expiration Date Visits Requested Visits Authorized [id number] Authorized Auto-Generat ed Referral 12/10/2023 01/08/2025 1 1 Additional Source Comments INFORMATION SOURCE (unrecogn ized section and content) DATE CREATED AUTHOR 05/28/2020 [facility] DATE CREATED AUTHOR AUTHOR'S ORGANIZ ATION [facility] DATE CREATED AUTHOR AUTHOR'S ORGANIZ ATION 09/15/2023 [facility] DATE CREATED AUTHOR AUTHOR'S ORGANIZ ATION 12/12/2023 [facility] DATE CREATED AUTHOR AUTHOR'S FRANKLYN ATRANJAN 12/31/2023 [facility] Goals (unrecognized section and content) Goals may be documented in a n alternate sectionGoals may be documented in an alternate sectionGoals may be documented in an alternate sectionGoals may be documented in an alternate sectionGoals may be documented in an alternate section Care Teams (unrecognized sec tion and content) Team Status: Active Member Role Status Dates Miguel Nova [employer], [employer]-C Primary Care Provider Active Team Status: Inactive Member Role Status Dates Dr. Nba Campos MD Primary Care Provider, Refer ring Provider Active Miguel Nova [employer], [employer]-C Attending Provider Active Team Status: Active Member Role Status Dates Dr. Nba Campos MD Primary Care Provider, Atten ding Provider Active Team Status: Inactive Member Role Status Dates Miguel Nova [employer], [employer]-C Primary Care Provide r, Attending Provider, Referring Provider Active Team Status: Inactive Member Role Status Dates Dr. Nba Campos MD Primary Care Provider, Atten ding Provider Active Team Status: Active Member Role Status Dates Miguel Nova VSC, [employer]ER-C Primary Care Provider Active Team Status: Inactive Member Role Status Dates Miguel Nova VSC, [employer]-C Primary Care Provid er, Attending Provider, Referring Provider Active Chief Of Surgery Relationship Specialty Start Date End Date Miguel Nova [address] [place] [address] PCP - General Family Medicine 12/10/23 Chief Of Surgery Relationship Specialty Start Date End Date Nova Miguel [address] [place] [address] PCP - General Family Medicine 12/10/23 Source Comments (unrecognize d section and content) In the event this informatio n is protected by the Federal Confidentiality of Alcohol and Drug Abuse Patient Records regulations: The Federal rules restrict any use of the information to criminally investigate or prosecute any alcohol or drug abuse patient.[facility] the event this information is protected by the Federal Confidentiality of Alcohol and Drug Abuse Patient Records regulations: The Federal rules restrict any use of the information to criminally investigate or prosecute any alcohol or drug abuse patient.[facility] the event this information is protected by the Federal Confidentiality of Alcohol and Drug Abuse Patient Records regulations: The Federal rules restrict any use of the information to criminally investigate or prosecute any alcohol or drug abuse patient.[facility] the event this information is protected by the Federal Confidentiality of Alcohol and Drug Abuse Patient Records regulations: The Federal rules restrict any use of the information to criminally investigate or prosecute any alcohol or drug abuse patient.[facility] Reason for Visit (unrecogniz ed section and content) Reason Comments Pain Reason Comments Low Back Pain consult, referred by Dr Guillermina Hearn Consult Specialty Diagnoses / Procedures Referred By Contac t Referred To Contact [facility] [place] Diagnoses Lumbar back pain Procedures CONS[facility] TO [facility] OFFICE/OUTPATIENT [facility] 60 MINUTES Guillermina Hearn MD [address] [place] [address] Referral ID Status Reason Start Date Expiration Date V isits Requested Visits Authorized [id number] Closed PCP Requested Referral 10/14/2023 10/13/2024 1 1 Specialty Diagnoses / Procedures Referred By Contac t Referred To Contact MR IMAGING Diagnoses Lumbar back pain Chronic right-sided low back pain without sciatica Lumbar facet arthropathy Procedures MRI LUMBAR SPINE WO IVCON MRI SPINAL CANAL LUMBAR W/O CONTRAST MATERIAL Ade Good MD [address] [place] [id number] [place] [address] Referral ID Status Reason Start Date Expiration Date V isits Requested Visits Authorized [id number] Closed Auto-Generate d Referral 12/10/2023 01/08/2025 1 1 Reason Comments Radio Gen RMP Specialty Diagnoses / Procedures Referred By Contac t Referred To Contact XR IMAGING Diagnoses Pain in right hip Procedures XR HIP GENERAL 3V PELV/AP/LAT RIGHT RADEX HIP UNILATERAL WITH PELVIS 2-3 VIEWS Elizabeth Bird PA-C [address] [place] [id number] [place] [address] Referral ID Status Reason Start Date Expiration Date V isits Requested Visits Authorized [id number] Closed Auto-Generate d Referral 10/09/2023 11/07/2024 1 1 FOR RECORDS PERTAINING TO PATIENTS WHO ARE OR HAVE BEEN ENROLLED IN A CHEMICAL DEPENDENCY/SUBSTANCEABUSE PROGRAM, SOME INFORMATION MAY BE OMITTED. This clinical summary was aggregated from multiple sources. Caution should be exercised in using it in the provision of clinical care. This summary normalizes information from multiple sources, and as a consequence, information in this document may materially change the coding, format and clinical context of patient data. In addition, data may be omitted in some cases. CLINICAL DECISIONS SHOULD BE BASED ON THE PRIMARY CLINICAL RECORDS. [employer] provides no warranty or guarantee of the accuracy or completeness of information in this document.
[2024-10-08 12:19] LABS: Absolute Lymphocyte Count 1.78 X10^3/uL (0.83-4.51); Absolute Neutrophil Count 3.7 X10^3/uL (2.0-7.7); Basophil# 0.05 X10^3/uL; Basophil% 0.8 % (0-1); Eosinophil# 0.09 X10^3/uL; Eosinophils% 1.4 % (0-5); Hematocrit 42.6 % (37-47); Hemoglobin 14.4 g/dL (12.0-15.0); Lymphocyte # 1.78 X10^3/ul (0.83-4.51); Lymphocyte % 28.2 % (19-41); Mean Corp Hgb Conc 33.8 g/dL (32-36); Mean Corpuscular Volume 91.6 fL (81-99); Mean Platelet Vol. 8.9 fl (6.2-12.0); Monocyte# 0.65 X10^3/uL; Monocyte% 10.3 % (0-10); NRBC Flagged by Analyzer 0 % (0-5); Neutrophil # 3.73 X10^3/uL (2.7-7.7); Platelet Count 362 K/mm3 (150-450); RBC Distribution Width CV 12.3 % (11.6-14.6); RBC Distribution Width SD 41.6 fl (35.1-43.9); Red Blood Count 4.65 M/mm3 (4.2-5.4); White Blood Count 6.3 K/mm3 (4.4-11.0)
[2024-10-08 12:54] LABS: Hemoglobin A1c 5.3 % (<=5.6)
[2024-10-08 13:12] LABS: ALB/GLOB Ratio 1.5 RATIO (0.9-2.4); AST(SGOT) 28 U/L (<=31); Alanine Aminotransfer ALT/SGPT 27 U/L (<=34); Albumin, Serum 4.4 g/dL (3.5-5.0); Alkaline Phosphatase 71 U/L (35-104); Anion Gap 11 (5-15); BUN 14 mg/dL (4-19); BUN/Creat Ratio 16.7 RATIO (10-20); Calcium,Total 9.3 mg/dL (7.6-11.0); Carbon Dioxide 23.6 mmol/L (21.0-32.0); Chloride 102 mmol/L (98-108); Cholesterol 174 mg/dL (<=200); Creatinine, Serum 0.82 mg/dL (0.70-1.20); EST Glomerular Filtration Rate 91 (>60); Ferritin 116 ng/mL (22-378); Follicle Stimulating Hormone 4.8 mIU/mL; Free T3 3.3 pg/mL (2.18-3.98); Globulin 2.9 g/dL (2.2-4.2); Glucose 89 mg/dL (70-99); High Density Lipoprotein 60 mg/dL; Low Density Lipoprotein Calc. 103 mg/dL; Luteinizing Hormone 5.4 mIU/mL; Potassium 4.2 mmol/L (3.3-5.1); Protein, Total 7.3 g/dL (5.9-8.4); Sodium Level 136 mmol/L (133-145); Total Bilirubin 0.58 mg/dL (0.00-1.30); Triglycerides 58 mg/dL; Very Low Density Lipoprotein 12 mg/dL (5-40); Vitamin B12 641 pg/mL (180-914); Vitamin D,25 Hydroxy 31.2 ng/mL (30-100); cholesterol:hdl ratio screen 2.91
[2024-10-08 13:34] LABS: Iron 133 ug/dL (50-170); Iron Binding Capacity,Total 294 ug/dL (250-450); Iron Binding Capacity,Unsat 161 ug/dL (228-428)
[2024-10-09 08:09] LABS: PROGESTERONE 2.5 ng/mL (.)
[2024-10-13 11:08] LABS: PROLACTIN 14.9 ng/mL (4.8-33.4); Testosterone, % Free 4.15 % (0.50-2.80); Testosterone, Free 0.21 ng/dL (0.10-0.85); Testosterone, Total 5 ng/dL (4-50); Thyroid Peroxidase AB < 9 IU/mL (0-34)
== END | disposition home or self-care (01) ==
LOC: VSLAB 08:39
PROVIDERS: PCP Nurse Practitioner Family; Visit Provider Nurse Practitioner Family
DX: Z13.220 Encounter for screening for lipoid disorders (principal); Z13.1 Encounter for screening for diabetes mellitus; R53.83 Other fatigue; R68.82 Decreased libido
CPT/HCPCS: 36415; 80053; 80061; 82306; 82607; 82670; 82728; 83001; 83002; 83036; 83540; 83550; 84144; 84146; 84402; 84403; 84439; 84443; 84481; 85025; 86376